=== PATIENT | female | born 1950 | race Caucasian/White ===

== ENCOUNTER 2017-08-23 10:50 | Emergency (ER) | payer MEDICARE, OTHER ==
--- NOTE | 2017-08-23 12:27 | XR ---
EXAMINATION TYPE: XR chest 2V DATE OF EXAM: 08/23/2017 COMPARISON: 06/27/2015 INDICATION: cough, pain TECHNIQUE: Frontal and lateral views of the chest are obtained. FINDINGS: The heart size is normal. The pulmonary vasculature is normal. The lungs are clear. IMPRESSION: 1. No acute pulmonary process.
[2017-08-23] MEDS ORDERED: IPRATROPIUM-ALBUTEROL 3 ML NEB INHALATION STA (13:12)
--- NOTE | 2017-08-23 13:18 | ED ---
General Adult HPI - General Chief complaint: Upper Respiratory Infection Stated complaint: COUGH Time Seen by Provider: 08/23/17 13:07 Source: patient, RN notes reviewed, old records reviewed Mode of arrival: wheelchair Limitations: no limitations - History of Present Illness Initial comments: 67-year-old female presents with 2 month history of cough. Patient is a current smoker. She states that her cough has been persistent over the past 2 months. She is also had rhinorrhea and some nasal congestion. Denies fever or chills. Cough is primarily dry. No chest pain. She does feel some abdominal pain when she coughs. No significant dyspnea. No lower extremity swelling, no calf tenderness. Patient has remote history of laryngeal cancer status post resection. Denies any sore throat or difficulty swallowing. Patient was seen by her primary care physician and prescribed an antibiotic but she was unable to get this filled. - Related Data Home Medications Medication Instructions Recorded Confirmed Aspirin EC [Ecotrin Low Dose] 81 mg PO DAILY 09/27/15 09/27/15 Pain Reliever(Unknown) 1 tab PO Q8H PRN 09/27/15 09/27/15 Previous Rx's Medication Instructions Recorded Docusate [Colace] 100 mg PO DAILY #30 capsule 09/27/15 HYDROcodone/APAP 5-325MG [[place] 5] 1 each PO Q4HR PRN #20 tab 09/27/15 Albuterol Inhaler [Ventolin Hfa 1 - 2 puff INHALATION Q4HR PRN #1 08/23/17 Inhaler] inhaler Azithromycin [Zithromax Z-pack] 0 mg PO DIRECTED #6 tab 08/23/17 predniSONE 50 mg PO DAILY #5 tab 08/23/17 Allergies Allergy/AdvReac Type Severity Reaction Status Date / Time No Known Allergies Allergy Verified 08/23/17 11:37 Review of Systems ROS Statement: Those systems with pertinent positive or pertinent negative responses have been documented in the HPI. ROS Other: All systems not noted in ROS Statement are negative. Past Medical History Past Medical History: Cancer, Hyperlipidemia Additional Past Medical History / Comment(s): neck and back pain, thyroid cancer History of Any Multi-Drug Resistant Organisms: None Reported Past Surgical History: Back Surgery Additional Past Surgical History / Comment(s): Thyroid surgery Past Psychological History: No Psychological Hx Reported Smoking Status: Current every day smoker Past Alcohol Use History: None Reported Past Drug Use History: None Reported General Exam Limitations: no limitations General appearance: alert, in no apparent distress Head exam: Present: atraumatic, normocephalic Eye exam: Present: normal appearance, PERRL ENT exam: Present: normal exam Neck exam: Present: normal inspection. Absent: tenderness, meningismus Respiratory exam: Present: wheezes, decreased breath sounds. Absent: respiratory distress, rhonchi, stridor, accessory muscle use Cardiovascular Exam: Present: regular rate, normal rhythm GI/Abdominal exam: Present: soft. Absent: distended, tenderness Extremities exam: Present: normal inspection, normal capillary refill. Absent: pedal edema, calf tenderness Neurological exam: Present: alert, oriented X3, CN II-XII intact. Absent: motor sensory deficit Psychiatric exam: Present: normal affect, normal mood Skin exam: Present: warm, dry, intact. Absent: cyanosis, diaphoretic Course Vital Signs 08/23/17 11:35 Temperature 98.6 F Pulse Rate 89 Respiratory 16 Rate Blood Pressure 122/78 O2 Sat by Pulse 97 Oximetry Medical Decision Making - Medical Decision Making 67-year-old female with 2 month history of cough and URI symptoms. Patient is afebrile. She is a current smoker, no documented history of COPD or asthma. However she has decreased breath sounds the next week. Patient likely has a component of chronic obstructive pulmonary disease. Normal vital signs, no respiratory distress. She is given albuterol, Atrovent, and Decadron in the emergency department. Chest x-rays obtained, this is negative for acute cardiopulmonary disease, no focal pneumonia. She will be started on a course of steroids, given albuterol, and azithromycin. She is encouraged to follow up with her primary care physician. She will attempt to quit smoking. Disposition Clinical Impression: Bronchitis Disposition: HOME SELF-CARE Condition: Fair Instructions: Upper Respiratory Infection (ED), Chronic Bronchitis (ED) Prescriptions: Albuterol Inhaler [Ventolin Hfa Inhaler] 1 - 2 puff INHALATION Q4HR PRN #1 inhaler PRN Reason: Shortness Of Breath Azithromycin [Zithromax Z-pack] 0 mg PO DIRECTED #6 tab predniSONE 50 mg PO DAILY #5 tab Is patient prescribed a controlled substance at d/c from ED?: No Referrals: Lolis Escalera DO [Primary Care Provider] - 1-2 days Time of Disposition: 13:16
[2017-08-23] MEDS: DEXAMETHASONE SOD PHOSPHATE 10 MG/ML 1 ML VIAL IM STA ×2 (13:27→13:49)
[2017-08-23 13:53] VITALS: BP 129/78; PULSE 69; RESP 18; TEMP 98
== END 2017-08-23 13:51 | disposition home or self-care (01) ==
LOC: EC 10:50
DX: J40 Bronchitis, not specified as acute or chronic (principal); Z85.850 Personal history of malignant neoplasm of thyroid; Z85.21 Personal history of malignant neoplasm of larynx; F17.200 Nicotine dependence, unspecified, uncomplicated; Z79.82 Long term (current) use of aspirin
CPT/HCPCS: 94640; 71046; 99284; 96372; J1100

== ENCOUNTER 2017-11-10 12:48 | Observation (INO) | payer MEDICARE, OTHER ==
[2017-11-10 13:06] VITALS: RESP 16
[2017-11-10] MEDS ORDERED: SODIUM CHLORIDE 0.9% 1,000 ML IV STA (13:15)
[2017-11-10 13:39] LABS: Basophils % (A) 0 %; Eosinophils # (A) 0.1 k/uL (0-0.7); Eosinophils % (A) 2 %; HCT 36.1 % (34.0-46.0); HGB 11.5 gm/dL (11.4-16.0); Lymphocytes % (A) 16 %; MCH 29.2 pg (25.0-35.0); MCHC 31.8 g/dL (31.0-37.0); MCV 91.7 fL (80.0-100.0); Mean Platelet Volume 8.7; Monocytes # (A) 0.3 k/uL (0-1.0); Monocytes % (A) 5 %; Neutrophils # (A) 4.5 k/uL (1.3-7.7); Neutrophils % (A) 75 %; Platelet Count 221 k/uL (150-450); RBC 3.93 m/uL (3.80-5.40); RDW 13.7 % (11.5-15.5)
[2017-11-10 13:43] LABS: Partial Thromboplastin Time 23.5 sec (22.0-30.0)
[2017-11-10 13:44] LABS: Albumin 3.5 g/dL (3.5-5.0); Calcium 9.1 mg/dL (8.4-10.2); Magnesium 1.7 mg/dL (1.6-2.3); Potassium 4.5 mmol/L (3.5-5.1); Total Bilirubin 0.4 mg/dL (0.2-1.3); Total Protein 6.2 g/dL (6.3-8.2)
[2017-11-10 13:45] LABS: Creatine Kinase 88 U/L (30-135)
--- NOTE | 2017-11-10 13:50 | XR ---
EXAMINATION TYPE: XR chest 2V DATE OF EXAM: 11/10/2017 COMPARISON: Prior chest x-ray 08/23/2017 HISTORY: Syncope, abnormal EKG TECHNIQUE: Frontal and lateral views of the chest are obtained. FINDINGS: Patient is rotated. There are overlying cardiac leads. There is no focal air space opacity, pleural effusion, or pneumothorax seen. The cardiac silhouette size is stable accounting for differ ences in technique, heart size may be exaggerated by rotation. There is increased AP diameter of the chest. Kyphosis present centered at the lower thoracic spine. There is thoracic spondylosis. Postop c hanges are noted in the cervical spine. The osseous structures are intact. IMPRESSION: No acute cardiopulmonary process.
[2017-11-10 13:57] LABS: Creatine Kinase MB 1.3 ng/mL (0.0-2.4); Troponin I <0.012 ng/mL (0.000-0.034)
--- NOTE | 2017-11-10 14:49 | ED ---
General Adult HPI - General Chief complaint: Syncope Stated complaint: Syncope Source: patient Mode of arrival: EMS Limitations: no limitations - History of Present Illness Initial comments: Dictation was produced using [employer] dictation software. please excuse any grammatical, word or spelling errors. Chief Complaint: 67-year-old female with past medical history of bronchitis, chronic low back pain presents after syncopal episode. History of Present Illness: This EKG and were she normally eats for lunch. She states she experience multiple syncopal episodes. Patient states she did have some prodromal dizziness prior to syncopized. Patient was brought in by EMS. EMS did an initial EKG which showed atrial flutter and a rate of 173. While en route to the emergency department patient converted spontaneously to a normal rhythm. Patient has a history of dysrhythmia. Patient denies any cardiac history whatsoever. EMS provided patient with intravenous fluids The ROS documented in this emergency department record has been reviewed and confirmed by me. Those systems with pertinent positive or negative responses have been documented in the HPI. All other systems are other negative and/or noncontributory. - Related Data Home Medications Medication Instructions Recorded Confirmed No Known Home Medications 11/10/17 11/10/17 Allergies Allergy/AdvReac Type Severity Reaction Status Date / Time No Known Allergies Allergy Verified 11/10/17 13:58 Review of Systems ROS Statement: Those systems with pertinent positive or pertinent negative responses have been documented in the HPI. ROS Other: All systems not noted in ROS Statement are negative. Past Medical History Past Medical History: Cancer, Hyperlipidemia Additional Past Medical History / Comment(s): neck and back pain, thyroid cancer History of Any Multi-Drug Resistant Organisms: None Reported Past Surgical History: Back Surgery Additional Past Surgical History / Comment(s): Thyroid surgery Past Psychological History: No Psychological Hx Reported Smoking Status: Current every day smoker Past Alcohol Use History: None Reported Past Drug Use History: None Reported General Exam - General Exam Comments Initial Comments: PHYSICAL EXAM: General Impression: Alert and oriented x3, not in acute distress HEENT: Normocephalic atraumatic, extra-ocular movements intact, pupils equal and reactive to light bilaterally, mucous membranes moist. Cardiovascular: Heart regular rate and rhythm, S1&S2 audible, no murmurs, rubs or gallops Chest: Lungs clear to auscultation bilaterally, no rhonchi, no wheeze, no rales Abdomen: Bowel sounds present, abdomen soft, non-tender, non-distended, no organomegaly Musculoskeletal: Pulses present and equal in all extremities, no peripheral edema Motor: Power 5/5 bilaterally, no focal deficits noted Neurological: CN II-XII grossly intact, no focal motor or sensory deficits noted Skin: Intact with no visualized rashes Psych: Normal affect and mood Limitations: no limitations Course Vital Signs 11/10/17 11/10/17 12:55 13:46 Temperature 98 F Pulse Rate 96 92 Respiratory 16 16 Rate Blood Pressure 109/58 115/71 O2 Sat by Pulse 97 100 Oximetry Medical Decision Making - Medical Decision Making ED course: 67-year-old female presents after syncopal episode secondary to tachydysrhythmia. EKG performed at her facility shows no acute processes. Vital signs upon arrival are within acceptable limits. Patient does not have any complaints at this time. She feels at baseline. Denies any lower extremity symptoms. Laboratory evaluation obtained. CBC unremarkable, coag panel unremarkable, metabolic panel is negative. Troponin is negative. At this point there is no clear source for patient's paroxysmal tachydysrhythmia. We will have patient admitted to observation for echocardiogram and cardiology consult. EKG Interpretation: A 12 lead EKG was obtained. It was interpreted by myself and attending physician. There is a P wave before every QRS complex. Rate is 96. Rhythm is normal sinus rhythm, MT interval 194, care surgeon 80, QTc 464. QT is not prolonged. No ST segment depression or elevation. Overall, this EKG is unremarkable - Lab Data Result diagrams: 11/10/17 13:08 11/10/17 13:08 Lab Results 11/10/17 11/10/17 11/10/17 Range/Units 13:08 13:08 13:08 WBC 6.0 (3.8-10.6) k/uL RBC 3.93 (3.80-5.40) m/uL Hgb 11.5 (11.4-16.0) gm/dL Hct 36.1 (34.0-46.0) % MCV 91.7 (80.0-100.0) fL MCH 29.2 (25.0-35.0) pg MCHC 31.8 (31.0-37.0) g/dL RDW 13.7 (11.5-15.5) % Plt Count 221 (150-450) k/uL Neutrophils % 75 % Lymphocytes % 16 % Monocytes % 5 % Eosinophils % 2 % Basophils % 0 % Neutrophils # 4.5 (1.3-7.7) k/uL Lymphocytes # 1.0 (1.0-4.8) k/uL Monocytes # 0.3 (0-1.0) k/uL Eosinophils # 0.1 (0-0.7) k/uL Basophils # 0.0 (0-0.2) k/uL PT (9.0-12.0) sec INR (<1.2) APTT (22.0-30.0) sec Sodium 137 (137-145) mmol/L Potassium 4.5 (3.5-5.1) mmol/L Chloride 106 (98-107) mmol/L Carbon Dioxide 23 (22-30) mmol/L Anion Gap 8 mmol/L BUN 15 (7-17) mg/dL Creatinine 0.95 (0.52-1.04) mg/dL Est GFR (CKD-EPI)AfAm 73 (>60 ml/min/1.73 sqM) Est GFR (CKD-EPI)NonAf 63 (>60 ml/min/1.73 sqM) Glucose 130 H (74-99) mg/dL Calcium 9.1 (8.4-10.2) mg/dL Magnesium 1.7 (1.6-2.3) mg/dL Total Bilirubin 0.4 (0.2-1.3) mg/dL AST 26 (14-36) U/L ALT 29 (9-52) U/L Alkaline Phosphatase 87 (38-126) U/L Total Creatine Kinase 88 (30-135) U/L CK-MB (CK-2) 1.3 (0.0-2.4) ng/mL CK-MB (CK-2) Rel Index 1.5 Troponin I <0.012 (0.000-0.034) ng/mL Total Protein 6.2 L (6.3-8.2) g/dL Albumin 3.5 (3.5-5.0) g/dL 11/10/17 Range/Units 13:08 WBC (3.8-10.6) k/uL RBC (3.80-5.40) m/uL Hgb (11.4-16.0) gm/dL Hct (34.0-46.0) % MCV (80.0-100.0) fL MCH (25.0-35.0) pg MCHC (31.0-37.0) g/dL RDW (11.5-15.5) % Plt Count (150-450) k/uL Neutrophils % % Lymphocytes % % Monocytes % % Eosinophils % % Basophils % % Neutrophils # (1.3-7.7) k/uL Lymphocytes # (1.0-4.8) k/uL Monocytes # (0-1.0) k/uL Eosinophils # (0-0.7) k/uL Basophils # (0-0.2) k/uL PT 10.0 (9.0-12.0) sec INR 1.0 (<1.2) APTT 23.5 (22.0-30.0) sec Sodium (137-145) mmol/L Potassium (3.5-5.1) mmol/L Chloride (98-107) mmol/L Carbon Dioxide (22-30) mmol/L Anion Gap mmol/L BUN (7-17) mg/dL Creatinine (0.52-1.04) mg/dL Est GFR (CKD-EPI)AfAm (>60 ml/min/1.73 sqM) Est GFR (CKD-EPI)NonAf (>60 ml/min/1.73 sqM) Glucose (74-99) mg/dL Calcium (8.4-10.2) mg/dL Magnesium (1.6-2.3) mg/dL Total Bilirubin (0.2-1.3) mg/dL AST (14-36) U/L ALT (9-52) U/L Alkaline Phosphatase (38-126) U/L Total Creatine Kinase (30-135) U/L CK-MB (CK-2) (0.0-2.4) ng/mL CK-MB (CK-2) Rel Index Troponin I (0.000-0.034) ng/mL Total Protein (6.3-8.2) g/dL Albumin (3.5-5.0) g/dL Disposition Clinical Impression: Paroxysmal atrial flutter Disposition: ADMITTED IP TO THIS HOSP Condition: Fair Referrals: Lolis Escalera DO [Primary Care Provider] - 1-2 days Decision Time: 14:50
[2017-11-10] MEDS ORDERED: NALOXONE 0.4 MG/ML 1 ML VIAL IV PRN (14:51)
[2017-11-10 15:00] LABS: Appearance,Urine Clear (Clear); Bacteria,Urine Rare /hpf; Bilirubin,Urine Negative (Negative); Blood,Urine Negative (Negative); Color,Urine Light Yellow; Glucose,Urine (UA) Negative (Negative); Ketones,Urine Negative (Negative); Leukocyte Esterase,Urine Small (Negative); Nitrite,Urine Negative (Negative); PH, Urine 7.5 (5.0-8.0); Protein,Urine Negative (Negative); RBC,Urine 1 /hpf (0-5); Specific Gravity,Urine 1.005 (1.001-1.035); Urobilinogen,Urine <2.0 mg/dL (<2.0); WBC,Urine 6 /hpf (0-5)
--- NOTE | 2017-11-10 15:45 | P.HPIM ---
History of Present Illness H&P Date: 11/10/17 Chief Complaint: Syncopal episode This is 67-year-old female patient of Dr. Lolis Escalera. Patient presents to the emergency room with complaints of passing out. And EMS in route EKG showed atrial flutter at a rate of 173. Per ER report in route patient did convert spontaneously to normal sinus rhythm. Patient history includes bronchitis, chronic low back pain and thyroid cancer. Patient also states she is a smoker. Patient states she's had syncopal episodes before and got referred to cardiology but no confirmed diagnosis was made. Chest x-ray completed emergency room showing no acute cardiopulmonary process. EKG completed on arrival to emergency room showing normal sinus rhythm. Inferior infarct, age undetermined. Anterior septal infarct, age undetermined. Cardiology services have been consulted. Patient also states she has been feeling off balance for the past year. D-dimer has been ordered. TSH and electrolyte levels have been ordered. At this time patient denies any chest pain or shortness of breath. Patient denies any recent nausea vomiting or diarrhea. Patient denies any urinary burning or frequency. Urinary analysis completed showing small amount of leukocyte Estrace. Urine culture has been ordered. Review of Systems Please refer to HPI otherwise unremarkable Past Medical History Past Medical History: Cancer, Hyperlipidemia Additional Past Medical History / Comment(s): neck and back pain, thyroid cancer History of Any Multi-Drug Resistant Organisms: None Reported Past Surgical History: Back Surgery Additional Past Surgical History / Comment(s): Thyroid surgery Past Psychological History: No Psychological Hx Reported Smoking Status: Current every day smoker Past Alcohol Use History: None Reported Past Drug Use History: None Reported Medications and Allergies Home Medications Medication Instructions Recorded Confirmed Type No Known Home Medications 11/10/17 11/10/17 History Allergies Allergy/AdvReac Type Severity Reaction Status Date / Time No Known Allergies Allergy Verified 11/10/17 13:58 Physical Exam Vitals: Vital Signs Temp Pulse Resp BP Pulse Ox 11/10/17 15:13 97.8 F 11/10/17 14:57 97 16 113/66 97 11/10/17 13:46 92 16 115/71 100 11/10/17 12:55 98 F 96 16 109/58 97 Intake and Output 11/10/17 11/10/17 11/10/17 06:59 14:59 22:59 Other: Weight 68.039 kg Head normocephalic Neck supple Lungs clear to auscultation bilaterally no wheezing or crackles Heart regular rate and rhythm S1-S2, no rub or gallop Abdomen is soft nontender nondistended positive bowel sounds no hepatosplenomegaly Extremities no edema Neuro alert and orientated to 3 Results CBC & Chem 7: 11/10/17 13:08 11/10/17 13:08 Labs: Abnormal Lab Results - Last 24 Hours (Table) 11/10/17 11/10/17 Range/Units 13:08 14:44 Glucose 130 H (74-99) mg/dL Total Protein 6.2 L (6.3-8.2) g/dL Ur Leukocyte Esterase Small H (Negative) Urine WBC 6 H (0-5) /hpf Urine Bacteria Rare H (None) /hpf Assessment and Plan Assessment: 1. Syncopal episode with episodes of paroxysmal atrial flutter. Per EMS report patient's heart rate 173. Patient did convert spontaneously in route to hospital. EKG completed on arrival to emergency room showing normal sinus rhythm. Inferior infarct, age undetermined. Anterior septal infarct, age undetermined. Cardiology services have been consulted. TSH magnesium and electrolytes have been ordered. D-dimer also ordered 2. History of thyroid cancer 3. Nicotine dependence. Nicotine patch has been ordered 4. Hyperlipidemia 5. History of chronic back pain 6. Positive UA. Urinary analysis showing small amount of leukocyte Estrace. Patient denies any urinary symptoms at this time. Urine culture has been ordered DVT prophylaxis Lovenox. GI prophylaxis Pepcid Time with Patient: Greater than 30 (Greater than 60% of the total time spent in counseling and coordination of care. I performed an examination of the patient and discussed their management with the Nurse Practitioner. I have reviewed the Nurse Practitioner's notes and agree with the documented findings and plan of care)
[2017-11-10 16:44] LABS: T4, Free (Free Thyroxine) 0.75 ng/dL (0.78-2.19)
[2017-11-10 17:41] VITALS: BP 136/74; PULSE 80; TEMP 96.8
[2017-11-11] MEDS ORDERED: NICOTINE 14MG/24HR PATCH TRANSDERM SCH (09:00)
[2017-11-11] MEDS ORDERED: FAMOTIDINE 20 MG TAB PO SCH (09:00)
[2017-11-11] MEDS ORDERED: ENOXAPARIN 40 MG/0.4 ML SYRINGE SQ SCH (09:00)
--- NOTE | 2017-11-11 11:14 | P.DS ---
Providers Date of admission: 11/10/17 14:52 Expected date of discharge: 11/10/17 Attending physician: Robbie Rodriguez Consults: 11/10/17 14:52 Consult Physician Routine Consulting Provider: Patricia Zarate Consult Reason/Comments: paroxysmal atrial flutter Do you want consulting provider notified?: Yes Primary care physician: Lolis Escalera Hospital Course: Patient left AGAINST MEDICAL ADVICE Discharge Diagnosis 1. Syncopal episode with episodes of paroxysmal atrial flutter. Per EMS report patient's heart rate 173. Patient did convert spontaneously in route to hospital. EKG completed on arrival to emergency room showing normal sinus rhythm. Inferior infarct, age undetermined. Anterior septal infarct, age undetermined. Cardiology services have been consulted. TSH magnesium and electrolytes have been ordered. D-dimer also ordered. Recommended thorough workup but patient decided to leave AGAINST MEDICAL ADVICE. 2. History of thyroid cancer 3. Nicotine dependence. Nicotine patch has been ordered 4. Hyperlipidemia 5. History of chronic back pain 6. Positive UA. Urinary analysis showing small amount of leukocyte Estrace. Patient denies any urinary symptoms at this time. Urine culture has been ordered Hospital course This is 67-year-old female patient of Dr. Lolis Escalera. Patient presents to the emergency room with complaints of passing out. And EMS in route EKG showed atrial flutter at a rate of 173. Per ER report in route patient did convert spontaneously to normal sinus rhythm. Patient history includes bronchitis, chronic low back pain and thyroid cancer. Patient also states she is a smoker. Patient states she's had syncopal episodes before and got referred to cardiology but no confirmed diagnosis was made. Chest x-ray completed emergency room showing no acute cardiopulmonary process. EKG completed on arrival to emergency room showing normal sinus rhythm. Inferior infarct, age undetermined. Anterior septal infarct, age undetermined. Cardiology services have been consulted. Patient also states she has been feeling off balance for the past year. D-dimer has been ordered. TSH and electrolyte levels have been ordered. At this time patient denies any chest pain or shortness of breath. Patient denies any recent nausea vomiting or diarrhea. Patient denies any urinary burning or frequency. Urinary analysis completed showing small amount of leukocyte Estrace. Urine culture has been ordered. Per nursing records patient presented with bed bugs and patient's belongings were sealed in bed she got upset due to her belongings being taken away and decided to leave AGAINST MEDICAL ADVICE. It was recommended the patient stay for thorough workup but patient declined and continue to leave against medical I performed an examination of the patient and discussed their management with the Nurse Practitioner. I have reviewed the Nurse Practitioner's notes and agree with the documented findings and plan of care Patient Condition at Discharge: Fair Plan - Discharge Summary Discharge Rx Participant: No New Discharge Prescriptions: No Action No Known Home Medications Discharge Medication List No Known Home Medications 11/10/17 [History] Follow up Appointment(s)/Referral(s): Lolis Escalera DO [Primary Care Provider] - 1-2 days Discharge Disposition: Left Against Medical Advice
== END 2017-11-10 22:02 | disposition left against medical advice (07) ==
LOC: EC 12:48 → 6SEL 14:52
PROVIDERS: ADMIT Internal Medicine; ATTEND Internal Medicine
DX: R55 Syncope and collapse (principal); I48.92 Unspecified atrial flutter; R82.90 Unspecified abnormal findings in urine; G89.29 Other chronic pain; M54.5 Low back pain; M54.2 Cervicalgia; E78.5 Hyperlipidemia, unspecified; F17.200 Nicotine dependence, unspecified, uncomplicated; B88.8 Other specified infestations; I25.2 Old myocardial infarction; Z85.850 Personal history of malignant neoplasm of thyroid; Z87.09 Personal history of other diseases of the respiratory system
CPT/HCPCS: 99285 ×2; 96360 ×2; 36415; 93005; 85379; 84439; 80053; 84443; 82550; 82553; 83735; 84484; 85025; 85610; 85730; 81001; 71046; G0378

== ENCOUNTER 2017-11-19 08:39 | Inpatient (IN) | payer MEDICARE, OTHER ==
[2017-11-19] MEDS ORDERED: SODIUM CHLORIDE 0.9% 1,000 ML IV STA (08:57)
[2017-11-19] MEDS ORDERED: NICOTINE 21MG/24HR PATCH TRANSDERM STA (09:08)
[2017-11-19] MEDS ORDERED: ONDANSETRON 4 MG/2 ML VIAL IVP STA (09:09)
--- NOTE | 2017-11-19 09:11 | ED ---
General Adult HPI - General Chief complaint: Nausea/Vomiting/Diarrhea Stated complaint: Nauseated, Vertigo Time Seen by Provider: 11/19/17 08:42 Source: patient, EMS, RN notes reviewed Mode of arrival: EMS Limitations: no limitations - History of Present Illness Initial comments: 67-year-old female presents with lightheadedness, generalized shakiness, and nausea and vomiting. Patient has had several episodes of nausea and vomiting in the past 24 hours. Denies any room spinning sensation or vertigo-like symptoms. Denies focal weakness or numbness. Denies any pain complaints, no chest pain or abdominal pain. Patient states she has recently quit smoking in the past 2 days. She believes her symptoms may be related to smoking cessation. She does not have money for cigarettes or nicotine patches. - Related Data Home Medications Medication Instructions Recorded Confirmed No Known Home Medications 11/10/17 11/19/17 Allergies Allergy/AdvReac Type Severity Reaction Status Date / Time No Known Allergies Allergy Verified 11/19/17 09:05 Review of Systems ROS Statement: Those systems with pertinent positive or pertinent negative responses have been documented in the HPI. ROS Other: All systems not noted in ROS Statement are negative. Past Medical History Past Medical History: Cancer, Hyperlipidemia, Pneumonia Additional Past Medical History / Comment(s): neck and back pain, thyroid cancer ,bronchitis "ringing in my ears","poor circulation" History of Any Multi-Drug Resistant Organisms: None Reported Past Surgical History: No Surgical Hx Reported Additional Past Surgical History / Comment(s): Thyroid surgery, x2 neck sx Past Anesthesia/Blood Transfusion Reactions: No Reported Reaction Additional Past Anesthesia/Blood Transfusion Reaction / Comment(s): clausterphobia Past Psychological History: No Psychological Hx Reported Smoking Status: Current every day smoker Past Alcohol Use History: None Reported - Past Family History Mother Family Medical History: Myocardial Infarction ([place]) Brother(s) Family Medical History: Myocardial Infarction [place]) Father Family Medical History: Myocardial Infarction [place]) Additional Family Medical History / Comment(s): x3 mi's General Exam Limitations: no limitations General appearance: alert, in no apparent distress Head exam: Present: atraumatic, normocephalic Eye exam: Present: normal appearance, PERRL, EOMI ENT exam: Present: normal exam Neck exam: Present: normal inspection Respiratory exam: Present: normal lung sounds bilaterally. Absent: respiratory distress Cardiovascular Exam: Present: regular rate, normal rhythm GI/Abdominal exam: Present: soft. Absent: distended, tenderness, guarding Extremities exam: Present: normal inspection, normal capillary refill. Absent: pedal edema Neurological exam: Present: alert, oriented X3, CN II-XII intact, other (No ataxia). Absent: motor sensory deficit Psychiatric exam: Present: normal affect, normal mood Skin exam: Present: warm, dry, intact Course Vital Signs 11/19/17 11/19/17 08:47 10:07 Temperature 96.9 F L Pulse Rate 76 71 Respiratory 18 20 Rate Blood Pressure 155/70 148/76 O2 Sat by Pulse 98 97 Oximetry - Reevaluation(s) Reevaluation #1: 11/19/17 12:48 On reevaluation, patient is not feeling better, she is tremulous, with nausea. EKG Findings - EKG Comments: EKG Findings:: EKG: Normal sinus rhythm, low voltage, no ST segment elevation, there is baseline artifact secondary to tremor. Rate of 73, [place] interval 180, QRS duration 78, QTC 449 Medical Decision Making - Medical Decision Making 67-year-old female presenting with nausea vomiting and tremor. Patient has no focal neurologic findings. Vital signs are stable. Laboratory studies obtained , patient does have sodium of 128 on CMP, CBC is within normal limits, urinalysis positive for trace ketones reflective likely of some dehydration. She is given normal saline in the emergency department on reevaluation she is feeling better. She will be placed in observation for continued IV hydration and repeat laboratory studies in the morning. Case discussed with Dr. Rodriguez, will accept admission. - Lab Data Result diagrams: 11/19/17 09:15 11/19/17 09:15 Lab Results 11/19/17 11/19/17 11/19/17 Range/Units 09:15 09:15 09:15 WBC 6.0 (3.8-10.6) k/uL RBC 4.01 (3.80-5.40) m/uL Hgb 11.9 (11.4-16.0) gm/dL Hct 35.2 (34.0-46.0) % MCV 87.9 (80.0-100.0) fL MCH 29.8 (25.0-35.0) pg MCHC 33.9 (31.0-37.0) g/dL RDW 13.5 (11.5-15.5) % Plt Count 191 (150-450) k/uL Neutrophils % 78 % Lymphocytes % 14 % Monocytes % 6 % Eosinophils % 1 % Basophils % 0 % Neutrophils # 4.6 (1.3-7.7) k/uL Lymphocytes # 0.9 L (1.0-4.8) k/uL Monocytes # 0.4 (0-1.0) k/uL Eosinophils # 0.1 (0-0.7) k/uL Basophils # 0.0 (0-0.2) k/uL Sodium 128 L (137-145) mmol/L Potassium 4.3 (3.5-5.1) mmol/L Chloride 96 L (98-107) mmol/L Carbon Dioxide 22 (22-30) mmol/L Anion Gap 10 mmol/L BUN 8 (7-17) mg/dL Creatinine 0.51 L (0.52-1.04) mg/dL Est GFR (CKD-EPI)AfAm >90 (>60 ml/min/1.73 sqM) Est GFR (CKD-EPI)NonAf >90 (>60 ml/min/1.73 sqM) Glucose 99 (74-99) mg/dL Calcium 9.1 (8.4-10.2) mg/dL Total Bilirubin 0.4 (0.2-1.3) mg/dL AST 22 (14-36) U/L ALT 25 (9-52) U/L Alkaline Phosphatase 91 (38-126) U/L Troponin I <0.012 (0.000-0.034) ng/mL Total Protein 6.5 (6.3-8.2) g/dL Albumin 3.8 (3.5-5.0) g/dL Urine Color Urine Appearance (Clear) Urine pH (5.0-8.0) Ur Specific [place] (1.001-1.035) Urine Protein (Negative) Urine Glucose (UA) (Negative) Urine Ketones (Negative) Urine Blood (Negative) Urine Nitrite (Negative) Urine Bilirubin (Negative) Urine Urobilinogen (<2.0) mg/dL Ur Leukocyte Esterase (Negative) Urine RBC (0-5) /hpf Urine WBC (0-5) /hpf Ur Squamous Epith Cells (0-4) /hpf Urine Mucus (None) /hpf Urine Opiates Screen (NotDetected) Ur Oxycodone Screen (NotDetected) Urine Methadone Screen (NotDetected) Ur Propoxyphene Screen (NotDetected) Ur Barbiturates Screen (NotDetected) U Tricyclic Antidepress (NotDetected) Ur Phencyclidine Scrn (NotDetected) Ur Amphetamines Screen (NotDetected) U Methamphetamines Scrn (NotDetected) U Benzodiazepines Scrn (NotDetected) Urine Cocaine Screen (NotDetected) U Marijuana (THC) Screen (NotDetected) Serum Alcohol <10 mg/dL 11/19/17 Range/Units 10:05 WBC (3.8-10.6) k/uL RBC (3.80-5.40) m/uL Hgb (11.4-16.0) gm/dL Hct (34.0-46.0) % MCV (80.0-100.0) fL MCH (25.0-35.0) pg MCHC (31.0-37.0) g/dL RDW (11.5-15.5) % Plt Count (150-450) k/uL Neutrophils % % Lymphocytes % % Monocytes % % Eosinophils % % Basophils % % Neutrophils # (1.3-7.7) k/uL Lymphocytes # (1.0-4.8) k/uL Monocytes # (0-1.0) k/uL Eosinophils # (0-0.7) k/uL Basophils # (0-0.2) k/uL Sodium (137-145) mmol/L Potassium (3.5-5.1) mmol/L Chloride (98-107) mmol/L Carbon Dioxide (22-30) mmol/L Anion Gap mmol/L BUN (7-17) mg/dL Creatinine (0.52-1.04) mg/dL Est GFR (CKD-EPI)AfAm (>60 ml/min/1.73 sqM) Est GFR (CKD-EPI)NonAf (>60 ml/min/1.73 sqM) Glucose (74-99) mg/dL Calcium (8.4-10.2) mg/dL Total Bilirubin (0.2-1.3) mg/dL AST (14-36) U/L ALT (9-52) U/L Alkaline Phosphatase (38-126) U/L Troponin I (0.000-0.034) ng/mL Total Protein (6.3-8.2) g/dL Albumin (3.5-5.0) g/dL Urine Color Light Yellow Urine Appearance Clear (Clear) Urine pH 6.0 (5.0-8.0) Ur Specific [place] 1.008 (1.001-1.035) Urine Protein Negative (Negative) Urine Glucose (UA) Negative (Negative) Urine Ketones Trace H (Negative) Urine Blood Small H (Negative) Urine Nitrite Negative (Negative) Urine Bilirubin Negative (Negative) Urine Urobilinogen <2.0 (<2.0) mg/dL Ur Leukocyte Esterase Moderate H (Negative) Urine RBC 6 H (0-5) /hpf Urine WBC 13 H (0-5) /hpf Ur Squamous Epith Cells <1 (0-4) /hpf Urine Mucus Rare H (None) /hpf Urine Opiates Screen Not Detected (NotDetected) Ur Oxycodone Screen Not Detected (NotDetected) Urine Methadone Screen Not Detected (NotDetected) Ur Propoxyphene Screen Not Detected (NotDetected) Ur Barbiturates Screen Not Detected (NotDetected) U Tricyclic Antidepress Not Detected (NotDetected) Ur Phencyclidine Scrn Not Detected (NotDetected) Ur Amphetamines Screen Not Detected (NotDetected) U Methamphetamines Scrn Not Detected (NotDetected) U Benzodiazepines Scrn Not Detected (NotDetected) Urine Cocaine Screen Not Detected (NotDetected) U Marijuana (THC) Screen Not Detected (NotDetected) Serum Alcohol mg/dL Disposition Clinical Impression: Dehydration, Hyponatremia Disposition: ADMITTED IP TO THIS [facility] Condition: Stable Is patient prescribed a controlled substance at d/c from ED?: No Referrals: Lolis Escalera DO [Primary Care Provider] - 1-2 days Decision to Admit Reason: Admit from EC Decision Date: 11/19/17 Decision Time: 12:50
[2017-11-19 09:44] LABS: Basophils % (A) 0 %; Eosinophils # (A) 0.1 k/uL (0-0.7); Eosinophils % (A) 1 %; HCT 35.2 % (34.0-46.0); HGB 11.9 gm/dL (11.4-16.0); Lymphocytes # (A) 0.9 k/uL (1.0-4.8); Lymphocytes % (A) 14 %; MCH 29.8 pg (25.0-35.0); MCHC 33.9 g/dL (31.0-37.0); MCV 87.9 fL (80.0-100.0); Mean Platelet Volume 9.6; Monocytes # (A) 0.4 k/uL (0-1.0); Monocytes % (A) 6 %; Neutrophils # (A) 4.6 k/uL (1.3-7.7); Neutrophils % (A) 78 %; Platelet Count 191 k/uL (150-450); RBC 4.01 m/uL (3.80-5.40); RDW 13.5 % (11.5-15.5)
[2017-11-19 09:55] LABS: ALT 25 U/L (9-52); AST 22 U/L (14-36); Albumin 3.8 g/dL (3.5-5.0); Alcohol <10 mg/dL; Alkaline Phosphatase 91 U/L (38-126); Anion Gap 10 mmol/L; Blood Urea Nitrogen 8 mg/dL (7-17); Calcium 9.1 mg/dL (8.4-10.2); Carbon Dioxide 22 mmol/L (22-30); Chloride 96 mmol/L (98-107); Glucose 99 mg/dL (74-99); Potassium 4.3 mmol/L (3.5-5.1); Sodium 128 mmol/L (137-145); Total Bilirubin 0.4 mg/dL (0.2-1.3); Total Protein 6.5 g/dL (6.3-8.2)
[2017-11-19 10:18] LABS: Appearance,Urine Clear (Clear); Bilirubin,Urine Negative (Negative); Blood,Urine Small (Negative); Color,Urine Light Yellow; Glucose,Urine (UA) Negative (Negative); Ketones,Urine Trace (Negative); Leukocyte Esterase,Urine Moderate (Negative); Mucus,Urine Rare /hpf; Nitrite,Urine Negative (Negative); Protein,Urine Negative (Negative); RBC,Urine 6 /hpf (0-5); Specific Gravity,Urine 1.008 (1.001-1.035); Squamous Epithelial Cell,Urine <1 /hpf (0-4); Urobilinogen,Urine <2.0 mg/dL (<2.0); WBC,Urine 13 /hpf (0-5)
[2017-11-19 10:27] LABS: Amphetamine Screen,Urine Not Detected (NotDetected); Barbiturate Screen,Urine Not Detected (NotDetected); Benzodiazepines Screen,Urine Not Detected (NotDetected); Cocaine Screen,Urine Not Detected (NotDetected); Methadone Screen, Urine Not Detected (NotDetected); Opiate Screen,Urine Not Detected (NotDetected); Oxycodone Screen, Urine Not Detected (NotDetected); Phencyclidine Screen,Urine Not Detected (NotDetected); Tricyclic Antidepressant,Urine Not Detected (NotDetected); Urn Cannabinoid Scrn Not Detected (NotDetected)
--- NOTE | 2017-11-19 11:17 | XR ---
EXAMINATION TYPE: XR chest 2V DATE OF EXAM: 11/19/2017 COMPARISON: Chest x-ray November 10, 2017 HISTORY: Weakness. TECHNIQUE: Frontal and lateral views of the chest are obtained. FINDINGS: There is chronic parenchymal change without suspicious new focal air space opacity, pleura l effusion, or pneumothorax seen. The cardiac silhouette size remains enlarged. Surgical changes cer vical spine is partially imaged. IMPRESSION: Chronic parenchymal changes and cardiomegaly without acute pulmonary process. No signifi cant change from prior.
[2017-11-19] MEDS ORDERED: ONDANSETRON 4 MG/2 ML VIAL IVP PRN (12:46)
[2017-11-19] MEDS ORDERED: NALOXONE 0.4 MG/ML 1 ML VIAL IV PRN (12:46)
--- NOTE | 2017-11-19 14:35 | P.HPIM ---
History of Present Illness H&P Date: 11/19/17 Chief Complaint: Nausea and shaking This is a 67-year-old female, a patient of Dr. Escalera. She has a known past medical history of thyroid cancer with thyroid surgery a couple years ago. Patient reports she was taken off of medication. She also has a history of hyperlipidemia and nicotine dependence. Patient also was recently hospitalized on 11/10/2017 where she left AGAINST MEDICAL ADVICE at that time she was diagnosed with syncope with episode of paroxysmal atrial flutter. She presents to the ER today with complaints of nausea, shaky and lightheadedness. She's had a poor appetite over the last couple of days. She reports no actual vomiting. She was found have evidence of a UTI will be started on Rocephin. Also found have evidence of a sodium of 128 chloride 96. She's given IV fluids. Her thyroid levels were abnormal on 11/10/2017 TSH was elevated at 17.100 and free T4 low at 0.75. Please note on EKG she for this admission shows a normal sinus rhythm with inferior infarct age undetermined. Chest x- ray shows no acute change. Patient denies any fever or chills or sweats. Denies any vomiting or bowel movement changes. She denies any burning with urination or frequency or urgency. Patient does report usually smokes about a pack to pack and a half a day. However she ran out of money and his been unable to afford her cigarettes. She feels that her symptoms may be contributed to not smoking. Drug screen is negative. Alcohol level less than 10. Patient denies seizure activity Review of Systems Please refer to HPI otherwise unremarkable Past Medical History Past Medical History: Cancer, Hyperlipidemia, Pneumonia Additional Past Medical History / Comment(s): neck and back pain, thyroid cancer ,bronchitis "ringing in my ears","poor circulation" History of Any Multi-Drug Resistant Organisms: None Reported Past Surgical History: No Surgical Hx Reported Additional Past Surgical History / Comment(s): Thyroid surgery, x2 neck sx Past Anesthesia/Blood Transfusion Reactions: No Reported Reaction Additional Past Anesthesia/Blood Transfusion Reaction / Comment(s): clausterphobia Past Psychological History: No Psychological Hx Reported Smoking Status: Current every day smoker Past Alcohol Use History: None Reported - Past Family History Mother Family Medical History: Myocardial Infarction ([place]) Brother(s) Family Medical History: Myocardial Infarction ([place]) Father Family Medical History: Myocardial Infarction ([place]) Additional Family Medical History / Comment(s): x3 mi's Medications and Allergies Home Medications Medication Instructions Recorded Confirmed Type No Known Home Medications 11/10/17 11/19/17 History Allergies Allergy/AdvReac Type Severity Reaction Status Date / Time No Known Allergies Allergy Verified 11/19/17 09:05 Physical Exam Vitals: Vital Signs Temp Pulse Resp BP Pulse Ox 11/19/17 13:49 98.6 F 72 24 144/76 97 11/19/17 10:07 71 20 148/76 97 11/19/17 08:47 96.9 F L 76 18 155/70 98 Intake and Output 11/18/17 11/19/17 11/19/17 22:59 06:59 14:59 Other: Weight 74 kg Head normocephalic Neck supple Lungs clear to auscultation bilaterally no wheezing or crackles Heart regular rate and rhythm S1-S2, no rub or gallop Abdomen is soft nontender nondistended positive bowel sounds no hepatosplenomegaly Extremities no edema Neuro alert and orientated to 3 Results CBC & Chem 7: 11/19/17 09:15 11/19/17 09:15 Labs: Abnormal Lab Results - Last 24 Hours (Table) 11/19/17 11/19/17 11/19/17 Range/Units 09:15 09:15 10:05 Lymphocytes # 0.9 L (1.0-4.8) k/uL Sodium 128 L (137-145) mmol/L Chloride 96 L (98-107) mmol/L Creatinine 0.51 L (0.52-1.04) mg/dL Urine Ketones Trace H (Negative) Urine Blood Small H (Negative) Ur Leukocyte Esterase Moderate H (Negative) Urine RBC 6 H (0-5) /hpf Urine WBC 13 H (0-5) /hpf Urine Mucus Rare H (None) /hpf Assessment and Plan Assessment: 1. Nausea with shaking and lightheadedness: possibly related to dehydration due to poor oral intake, hyponatremia and UTI. continue Zofran and IV fluids. 2. Hyponatremia: Sodium level 128 on admission. Possibly related to poor oral intake. Continue normal saline at 75 mL an hour. Repeat labs in a.m. 3. UTI: Check urine culture. Start Rocephin 1 g IV daily 4. History of thyroid cancer status post thyroidectomy. Repeat thyroid studies. Labs from 11/10/2017 show a TSH of 17.100 and a free T4 of 0.75 5. Nicotine dependence: Discussed smoking cessation greater than 3 minutes. Nicotine patch 21 mg daily 6. Recent hospitalization 11/10/2017 with syncope and paroxysmal atrial flutter patient left AGAINST MEDICAL ADVICE. We'll continue telemetry monitoring GI prophylaxis Protonix and DVT prophylaxis Lovenox Time with Patient: Greater than 30 (Greater than 60% of the total time spent in counseling and coordination of care.I performed an examination of the patient and discussed their management with the physician Chief Compressor Station Engineer. I have reviewed the Physician Chief Compressor Station Engineer's notes and agree with the documented findings and plan of care)
[2017-11-19] MEDS: SODIUM CHLORIDE 0.9% 1,000 ML IV SCH (15:42)
[2017-11-19] MEDS: ALPRAZolam 0.25 MG TAB PO PRN (15:42)
[2017-11-19 18:30] LABS: T4, Free (Free Thyroxine) 0.81 ng/dL (0.78-2.19)
[2017-11-19] MEDS: ACETAMINOPHEN TAB 325 MG TAB PO PRN (18:38)
[2017-11-20] MEDS: SODIUM CHLORIDE 0.9% 1,000 ML IV SCH ×2 (03:46→16:29)
[2017-11-20] MEDS: LEVOTHYROXINE 75 MCG TAB PO SCH ×2 (06:31→06:33)
[2017-11-20 07:34] LABS: Basophils % (A) 1 %; Eosinophils # (A) 0.1 k/uL (0-0.7); Eosinophils % (A) 3 %; HCT 38.8 % (34.0-46.0); HGB 12.5 gm/dL (11.4-16.0); Lymphocytes % (A) 20 %; MCH 29.3 pg (25.0-35.0); MCHC 32.3 g/dL (31.0-37.0); MCV 90.7 fL (80.0-100.0); Mean Platelet Volume 9.1; Monocytes # (A) 0.5 k/uL (0-1.0); Monocytes % (A) 10 %; Neutrophils # (A) 3.3 k/uL (1.3-7.7); Neutrophils % (A) 66 %; Platelet Count 215 k/uL (150-450); RBC 4.28 m/uL (3.80-5.40); RDW 13.7 % (11.5-15.5); WBC 5.1 k/uL (3.8-10.6)
[2017-11-20 08:14] LABS: ALT 23 U/L (9-52); AST 31 U/L (14-36); Albumin 3.9 g/dL (3.5-5.0); Alkaline Phosphatase 98 U/L (38-126); Anion Gap 11 mmol/L; Blood Urea Nitrogen 8 mg/dL (7-17); Calcium 9.5 mg/dL (8.4-10.2); Carbon Dioxide 22 mmol/L (22-30); Chloride 102 mmol/L (98-107); Glucose 88 mg/dL (74-99); Magnesium 1.9 mg/dL (1.6-2.3); Potassium 4.6 mmol/L (3.5-5.1); Sodium 135 mmol/L (137-145); Total Bilirubin 0.4 mg/dL (0.2-1.3); Total Protein 6.9 g/dL (6.3-8.2)
[2017-11-20] MEDS: NICOTINE 21MG/24HR PATCH TRANSDERM SCH (08:16)
[2017-11-20] MEDS: PANTOPRAZOLE 40 MG TABLET PO SCH (08:17)
[2017-11-20] MEDS: ENOXAPARIN 40 MG/0.4 ML SYRINGE SQ SCH (08:17)
[2017-11-20] MEDS: ALPRAZolam 0.25 MG TAB PO PRN ×2 (08:24→20:21)
--- NOTE | 2017-11-20 08:55 | P.NPCON ---
History of Present Illness - Reason for Consult hyponatremia - History of Present Illness Reason for consultation: Hyponatremia History of present illness: Patient is a 67-year-old female seen in renal consultation for hyponatremia. Patient presented to the hospital with nausea and vomiting going on for about one day. Patient states she ran out of cigarettes yesterday and felt quite agitated. Admits to good urine output. No hematuria or dysuria. Admits to drinking quite a bit of water but is unable to quantify. She is not on any diuretics. Patient was started on normal saline at 75 mL an hour in sodium level improved from 128 on admission to 135 this morning. No edema. Denies chest pain or shortness of breath. She also has hypothyroidism and is being treated with Synthroid. TSH levels have been trending down. No further vomiting or diarrhea. Urinalysis reveals no protein. Creatinine is 0.58. Admits to being depressed. Denies personal or family history of renal disease. Denies use of NSAIDs. No fever or chills. Vital signs are stable. General: The patient appeared well nourished and normally developed. HEENT: Head exam is unremarkable. Neck is without jugular venous distension. LUNGS: Lungs are clear to auscultation and percussion. Breath sounds decreased. HEART: Rate and Rhythm are regular. First and second heart sounds normal. No murmurs, rubs or gallops. ABDOMEN: Abdominal exam reveals normal bowel sounds. Non-tender and non- distended. No evidence of peritonitis. EXTREMITITES: No clubbing, cyanosis, or edema. Past Medical History Past Medical History: Cancer, Hyperlipidemia, Pneumonia Additional Past Medical History / Comment(s): neck and back pain, thyroid cancer ,bronchitis "ringing in my ears","poor circulation" History of Any Multi-Drug Resistant Organisms: None Reported Past Surgical History: No Surgical Hx Reported Additional Past Surgical History / Comment(s): Thyroid surgery, x2 neck sx Past Anesthesia/Blood Transfusion Reactions: No Reported Reaction Additional Past Anesthesia/Blood Transfusion Reaction / Comment(s): clausterphobia Smoking Status: Former smoker - Past Family History Mother Family Medical History: Myocardial Infarction ([place]) Brother(s) Family Medical History: Myocardial Infarction ([place]) Father Family Medical History: Myocardial Infarction ([place]) Additional Family Medical History / Comment(s): x3 mi's Medications and Allergies Home Medications Medication Instructions Recorded Confirmed Type No Known Home Medications 11/10/17 11/19/17 History Allergies Allergy/AdvReac Type Severity Reaction Status Date / Time No Known Allergies Allergy Verified 11/19/17 09:05 Physical Exam Vitals: Vital Signs Temp Pulse Pulse Resp BP BP Pulse Ox 11/20/17 06:25 96.9 F L 84 18 138/72 96 11/19/17 23:00 97.4 F L 73 18 132/70 99 11/19/17 17:53 74 16 11/19/17 14:45 97.6 F 75 20 140/81 97 11/19/17 13:49 98.6 F 72 24 144/76 97 11/19/17 10:07 71 20 148/76 97 Intake and Output 11/19/17 11/20/17 11/20/17 22:59 06:59 14:59 Intake Total 1000 600 Balance 1000 600 Intake: Oral 1000 600 Other: Voiding Method Toilet # Voids 3 2 Results - Lab Results Most recent lab results Calcium 9.5 mg/dL (8.4-10.2) 11/20/17 07:08 Magnesium 1.9 mg/dL (1.6-2.3) 11/20/17 07:08 11/20/17 07:08 11/20/17 07:08 Assessment and Plan Plan: Assessment: 1. Hypovolemic hyponatremia secondary to intravascular volume depletion from vomiting improving with IV hydration. Sodium level up to 135 this morning. 2. Hypothyroidism maintained on Synthroid. 3. Pyuria. Follow-up urine culture. Plan: Continue normal saline at 75 mL an hour. Encourage oral intake. Follow-up urine culture. Thank you for the consultation. I will continue to follow the patient with you during her hospital stay.
--- NOTE | 2017-11-20 12:44 | P.PN ---
Subjective Progress Note Date: 11/20/17 This is a 67-year-old female, a patient of Dr. Escalera. She has a known past medical history of thyroid cancer with thyroid surgery a couple years ago. Patient reports she was taken off of medication. She also has a history of hyperlipidemia and nicotine dependence. Patient also was recently hospitalized on 11/10/2017 where she left AGAINST MEDICAL ADVICE at that time she was diagnosed with syncope with episode of paroxysmal atrial flutter. She presents to the ER today with complaints of nausea, shaky and lightheadedness. She's had a poor appetite over the last couple of days. She reports no actual vomiting. She was found have evidence of a UTI will be started on Rocephin. Also found have evidence of a sodium of 128 chloride 96. She's given IV fluids. Her thyroid levels were abnormal on 11/10/2017 TSH was elevated at 17.100 and free T4 low at 0.75. Please note on EKG she for this admission shows a normal sinus rhythm with inferior infarct age undetermined. Chest x- ray shows no acute change. Patient denies any fever or chills or sweats. Denies any vomiting or bowel movement changes. She denies any burning with urination or frequency or urgency. Patient does report usually smokes about a pack to pack and a half a day. However she ran out of money and his been unable to afford her cigarettes. She feels that her symptoms may be contributed to not smoking. Drug screen is negative. Alcohol level less than 10. Patient denies seizure activity On 11/20/2017 patient is alert and oriented 3 in no apparent distress there is no new episodes of nausea or vomiting she was able to tolerate diet well this morning she is complaining of back pain and bilateral hip pain she states that she had a fall recently she is also complaining of nasal congestion with postnasal drip, otherwise she denies any complaints there is no chest pain or shortness of breath no abdominal pain no diarrhea no blood in the stools and no urinary symptoms. Objective - Vital Signs Vital signs: Vital Signs Temp 96.9 F L 11/20/17 06:25 Pulse 84 11/20/17 06:25 Resp 18 11/20/17 06:25 BP 138/72 11/20/17 06:25 Pulse Ox 96 11/20/17 06:25 Intake & Output 11/19/17 11/20/17 11/20/17 18:59 06:59 18:59 Intake Total 1600 Balance 1600 Weight 74 kg Intake: Oral 1600 Other: Voiding Method Toilet # Voids 2 2 - Exam Head normocephalic and atraumatic Neck supple no JVD no goiter Lungs clear to auscultation bilaterally no wheezing or crackles Heart regular rate and rhythm S1-S2, no rub or gallop Abdomen is soft nontender nondistended positive bowel sounds no hepatosplenomegaly Extremities no edema no cyanosis or clubbing Neuro alert and orientated to 3 - Labs CBC & Chem 7: 11/20/17 07:08 11/20/17 07:08 Labs: Abnormal Lab Results - Last 24 Hours (Table) 11/19/17 11/20/17 Range/Units 09:15 07:08 Sodium 135 L (137-145) mmol/L TSH 7.210 H (0.465-4.680) mIU/L Microbiology - Last 24 Hours (Table) 11/19/17 15:30 Urine Culture - Preliminary Urine,Voided Assessment and Plan Plan: 1. Nausea with shaking and lightheadedness: possibly related to dehydration due to poor oral intake, hyponatremia and UTI. continue Zofran and IV fluids. 2. Hyponatremia: Sodium level 128 on admission. Possibly related to poor oral intake. Continue normal saline at 75 mL an hour. Repeat labs in a.m. 3. UTI: Check urine culture. Start Rocephin 1 g IV daily 4. History of thyroid cancer status post thyroidectomy. Repeat thyroid studies. Labs from 11/10/2017 show a TSH of 17.100 and a free T4 of 0.75 mcg Patient refused to take Synthroid today she was counseled in length in regards to hypothyroidism and her history of thyroid cancer she seems to understand counseling will continue to offer Synthroid 75 g daily 5. Nicotine dependence: Discussed smoking cessation greater than 3 minutes. Nicotine patch 21 mg daily 6. Recent hospitalization 11/10/2017 with syncope and paroxysmal atrial flutter patient left AGAINST MEDICAL ADVICE. We'll continue telemetry monitoring 7. recent fall with low back pain and bilateral hip pain, patient is having trouble ambulating, will check x-ray of the lumbar spine in the bilateral hips. GI prophylaxis Protonix and DVT prophylaxis Lovenox
[2017-11-20 12:45] VITALS: BMI 26.3
[2017-11-20] MEDS: FLUTICASONE 50MCG/SPRAY NASAL 16GM EA NOSTRIL SCH (13:11)
--- NOTE | 2017-11-20 14:01 | XR ---
EXAMINATION TYPE: XR Hip Bilateral Complete , 4 VIEWS DATE OF EXAM ORDERED: 11/20/2017 HISTORY: Recent fall, bilateral hip X Ray. COMPARISON: None. FINDINGS: No fracture or dislocation is seen involving either hip. Both femoral heads are nonspheric al. IMPRESSION: 1. NO ACUTE OSSEOUS LESION. 2. PLEASE CORRELATE CLINICALLY FOR FEMOROACETABULAR IMPINGEMENT SYNDROME.
--- NOTE | 2017-11-20 14:03 | XR ---
EXAMINATION TYPE: XR lumbar spine 2 or 3V , 3 VIEWS DATE OF EXAM ORDERED: 11/20/2017 HISTORY: low back pain, recent fall. COMPARISON: Previous study dated 09/27/2015. FINDINGS: There is a gentle levoscoliosis. There is a stable retrograde listhesis of L2 on L3 and L1 on L2. Alignment is otherwise maintained. T here is diffuse disc space loss with relative sparing of L4-5. There is a vacuum phenomena present at L5-S1 as well as L3-4. There is no spondylolisthesis. No fracture is seen. IMPRESSION: 1. NO ACUTE OSSEOUS LESION. 2. DEGENERATIVE CHANGE.
[2017-11-20] MEDS: ACETAMINOPHEN TAB 325 MG TAB PO PRN (22:07)
[2017-11-21] MEDS: SODIUM CHLORIDE 0.9% 1,000 ML IV SCH ×2 (05:09→16:47)
[2017-11-21] MEDS: ACETAMINOPHEN TAB 325 MG TAB PO PRN ×3 (05:09→20:01)
[2017-11-21] MEDS: LEVOTHYROXINE 75 MCG TAB PO SCH (05:59)
[2017-11-21] MEDS: PANTOPRAZOLE 40 MG TABLET PO SCH (08:24)
[2017-11-21] MEDS: FLUTICASONE 50MCG/SPRAY NASAL 16GM EA NOSTRIL SCH (08:24)
[2017-11-21] MEDS: NICOTINE 21MG/24HR PATCH TRANSDERM SCH (08:24)
[2017-11-21] MEDS: ENOXAPARIN 40 MG/0.4 ML SYRINGE SQ SCH (08:25)
[2017-11-21 08:54] LABS: Anion Gap 8 mmol/L; Blood Urea Nitrogen 12 mg/dL (7-17); Calcium 9.3 mg/dL (8.4-10.2); Carbon Dioxide 23 mmol/L (22-30); Chloride 105 mmol/L (98-107); Glucose 95 mg/dL (74-99); Magnesium 1.9 mg/dL (1.6-2.3); Potassium 4.3 mmol/L (3.5-5.1); Sodium 136 mmol/L (137-145)
--- NOTE | 2017-11-21 10:22 | P.PN ---
Subjective Progress Note Date: 11/21/17 This is a 67-year-old female, a patient of Dr. Escalera. She has a known past medical history of thyroid cancer with thyroid surgery a couple years ago. Patient reports she was taken off of medication. She also has a history of hyperlipidemia and nicotine dependence. Patient also was recently hospitalized on 11/10/2017 where she left AGAINST MEDICAL ADVICE at that time she was diagnosed with syncope with episode of paroxysmal atrial flutter. She presents to the ER today with complaints of nausea, shaky and lightheadedness. She's had a poor appetite over the last couple of days. She reports no actual vomiting. She was found have evidence of a UTI will be started on Rocephin. Also found have evidence of a sodium of 128 chloride 96. She's given IV fluids. Her thyroid levels were abnormal on 11/10/2017 TSH was elevated at 17.100 and free T4 low at 0.75. Please note on EKG she for this admission shows a normal sinus rhythm with inferior infarct age undetermined. Chest x- ray shows no acute change. Patient denies any fever or chills or sweats. Denies any vomiting or bowel movement changes. She denies any burning with urination or frequency or urgency. Patient does report usually smokes about a pack to pack and a half a day. However she ran out of money and his been unable to afford her cigarettes. She feels that her symptoms may be contributed to not smoking. Drug screen is negative. Alcohol level less than 10. Patient denies seizure activity On 11/20/2017 patient is alert and oriented 3 in no apparent distress there is no new episodes of nausea or vomiting she was able to tolerate diet well this morning she is complaining of back pain and bilateral hip pain she states that she had a fall recently she is also complaining of nasal congestion with postnasal drip, otherwise she denies any complaints there is no chest pain or shortness of breath no abdominal pain no diarrhea no blood in the stools and no urinary symptoms. On 11/21/2017 patient is alert and oriented 3 in no distress no new episodes of nausea or vomiting patient is tolerating diet well her sodium is normal at 136 she had evidence of urinary tract infection on admission and has been maintained on IV Rocephin since admission urine culture is still pending. Clinically patient denies any fever or chills no headache or dizziness no chest pain no shortness of breath no cough no nausea or vomiting no abdominal pain no diarrhea and no urinary symptoms. Objective - Vital Signs Vital signs: Vital Signs Temp 96.9 F L 11/21/17 07:00 Pulse 65 11/21/17 07:00 Resp 18 11/21/17 07:00 BP 120/65 11/21/17 07:00 Pulse Ox 97 11/21/17 07:00 Intake & Output 11/20/17 11/21/17 11/21/17 18:59 06:59 18:59 Intake Total 930 850 200 Balance 930 850 200 Weight 74 kg Intake: Intake, IV Titration 450 Amount Sodium Chloride 0.9% 1, 400 000 ml @ 75 mls/hr IV . [id number] IVANIA Rx#:[id number] cefTRIAXone 1,000 mg In 50 Sodium Chloride 0.9% 50 ml @ 100 mls/hr IVPB Q24H IVANIA Rx#:[id number] Oral 480 850 200 Other: Voiding Method Bedside Commode # Voids 3 3 - Exam Head normocephalic and atraumatic Neck supple no JVD no goiter Lungs clear to auscultation bilaterally no wheezing or crackles Heart regular rate and rhythm S1-S2, no rub or gallop Abdomen is soft nontender nondistended positive bowel sounds no hepatosplenomegaly Extremities no edema no cyanosis or clubbing Neuro alert and orientated to 3 - Labs CBC & Chem 7: 11/20/17 07:08 11/21/17 07:47 Labs: Abnormal Lab Results - Last 24 Hours (Table) 11/21/17 Range/Units 07:47 Sodium 136 L (137-145) mmol/L Microbiology - Last 24 Hours (Table) 11/19/17 15:30 Urine Culture - Preliminary Urine,Voided Gram Neg Bacilli Assessment and Plan Plan: 1. Nausea with shaking and lightheadedness: possibly related to dehydration due to poor oral intake, hyponatremia and UTI. continue Zofran and IV fluids. 2. Hyponatremia: Sodium level 128 on admission. Possibly related to poor oral intake. Continue normal saline at 75 mL an hour. Repeat labs in a.m. 3. UTI: Check urine culture. Start Rocephin 1 g IV daily 4. History of thyroid cancer status post thyroidectomy. Repeat thyroid studies. Labs from 11/10/2017 show a TSH of 17.100 and a free T4 of 0.75 mcg Patient refused to take Synthroid today she was counseled in length in regards to hypothyroidism and her history of thyroid cancer she seems to understand counseling will continue to offer Synthroid 75 g daily 5. Nicotine dependence: Discussed smoking cessation greater than 3 minutes. Nicotine patch 21 mg daily 6. Recent hospitalization 11/10/2017 with syncope and paroxysmal atrial flutter patient left AGAINST MEDICAL ADVICE. We'll continue telemetry monitoring 7. recent fall with low back pain and bilateral hip pain, patient is having trouble ambulating, will check x-ray of the lumbar spine in the bilateral hips. GI prophylaxis Protonix and DVT prophylaxis Lovenox At this time increase ambulation possible discharge to home tomorrow
--- NOTE | 2017-11-21 11:44 | P.PN ---
Subjective Patient is seen in follow-up for hyponatremia. Patient presented with nausea and vomiting. Sodium level of to 136 today. Oral intake is good. No vomiting or diarrhea. Also being treated for hypothyroidism. Maintain on Synthroid. GFR at baseline. Vital signs are stable. General: The patient appeared well nourished and normally developed. HEENT: Head exam is unremarkable. Neck is without jugular venous distension. LUNGS: Lungs are clear to auscultation and percussion. Breath sounds decreased. HEART: Rate and Rhythm are regular. First and second heart sounds normal. No murmurs, rubs or gallops. ABDOMEN: Abdominal exam reveals normal bowel sounds. Non-tender and non- distended. No evidence of peritonitis. EXTREMITITES: No clubbing, cyanosis, or edema. Objective - Vital Signs Vital signs: Vital Signs Temp 96.9 F L 11/21/17 07:00 Pulse 65 11/21/17 07:00 Resp 18 11/21/17 07:00 BP 120/65 11/21/17 07:00 Pulse Ox 97 11/21/17 07:00 Intake & Output 11/20/17 11/21/17 11/21/17 18:59 06:59 18:59 Intake Total 930 850 200 Balance 930 850 200 Weight 74 kg Intake: Intake, IV Titration 450 Amount Sodium Chloride 0.9% 1, 400 000 ml @ 75 mls/hr IV . [id number] IVANIA Rx#:[id number] cefTRIAXone 1,000 mg In 50 Sodium Chloride 0.9% 50 ml @ 100 mls/hr IVPB Q24H IVANIA Rx#:[id number] Oral 480 850 200 Other: Voiding Method Bedside Commode # Voids 3 3 - Labs CBC & Chem 7: 11/20/17 07:08 11/21/17 07:47 Labs: Abnormal Lab Results - Last 24 Hours (Table) 11/21/17 Range/Units 07:47 Sodium 136 L (137-145) mmol/L Microbiology - Last 24 Hours (Table) 11/19/17 15:30 Urine Culture - Preliminary Urine,Voided Gram Neg Bacilli Assessment and Plan Plan: Assessment: 1. Hypovolemic hyponatremia secondary to intravascular volume depletion from vomiting improving with IV hydration. Sodium level up to 136 this morning. 2. Hypothyroidism maintained on Synthroid. 3. UTI. Urine culture positive for gram-negative bacilli. Maintain on IV antibiotics. Plan: Continue normal saline at 75 mL an hour. Encourage oral intake. Follow-up urine culture.
[2017-11-21] MEDS: ALPRAZolam 0.25 MG TAB PO PRN (20:01)
[2017-11-22] MEDS: LEVOTHYROXINE 75 MCG TAB PO SCH (06:34)
[2017-11-22] MEDS: SODIUM CHLORIDE 0.9% 1,000 ML IV SCH (06:34)
[2017-11-22] MEDS: FLUTICASONE 50MCG/SPRAY NASAL 16GM EA NOSTRIL SCH (07:26)
[2017-11-22] MEDS: NICOTINE 21MG/24HR PATCH TRANSDERM SCH (07:26)
[2017-11-22] MEDS: ENOXAPARIN 40 MG/0.4 ML SYRINGE SQ SCH (07:26)
[2017-11-22] MEDS: PANTOPRAZOLE 40 MG TABLET PO SCH (07:27)
--- NOTE | 2017-11-22 09:19 | P.PN ---
Subjective Patient is seen in follow-up for hyponatremia. Patient presented with nausea and vomiting. Sodium level improved with IV hydration. Oral intake is good. No vomiting or diarrhea. Also being treated for hypothyroidism. Maintain on Synthroid. GFR at baseline. Vital signs are stable. General: The patient appeared well nourished and normally developed. HEENT: Head exam is unremarkable. Neck is without jugular venous distension. LUNGS: Lungs are clear to auscultation and percussion. Breath sounds decreased. HEART: Rate and Rhythm are regular. First and second heart sounds normal. No murmurs, rubs or gallops. ABDOMEN: Abdominal exam reveals normal bowel sounds. Non-tender and non- distended. No evidence of peritonitis. EXTREMITITES: No clubbing, cyanosis, or edema. Objective - Vital Signs Vital signs: Vital Signs Temp 98.6 F 11/22/17 07:00 Pulse 74 11/22/17 07:00 Resp 16 11/22/17 07:00 BP 157/86 11/22/17 07:00 Pulse Ox 98 11/22/17 07:00 Intake & Output 11/21/17 11/22/17 11/22/17 18:59 06:59 18:59 Intake Total 440 Balance 440 Intake: Oral 440 Other: # Voids 1 2 # Bowel Movements 1 - Labs CBC & Chem 7: 11/20/17 07:08 11/21/17 07:47 Labs: Microbiology - Last 24 Hours (Table) 11/19/17 15:30 Urine Culture - Final Urine,Voided Escherichia coli Assessment and Plan Plan: Assessment: 1. Hypovolemic hyponatremia secondary to intravascular volume depletion from vomiting improving with IV hydration. Sodium level up to 136 as of yesterday. 2. Hypothyroidism maintained on Synthroid. 3. UTI. Urine culture positive for E. coli. Maintain on IV antibiotics. Plan: Hep-Lock IV fluids. Encourage oral intake. Stable for discharge from nephrology standpoint.
[2017-11-22] MEDS: ALPRAZolam 0.25 MG TAB PO PRN ×2 (12:56→22:01)
--- NOTE | 2017-11-22 13:25 | P.PN ---
Subjective Progress Note Date: 11/22/17 This is a 67-year-old female, a patient of Dr. Escalera. She has a known past medical history of thyroid cancer with thyroid surgery a couple years ago. Patient reports she was taken off of medication. She also has a history of hyperlipidemia and nicotine dependence. Patient also was recently hospitalized on 11/10/2017 where she left AGAINST MEDICAL ADVICE at that time she was diagnosed with syncope with episode of paroxysmal atrial flutter. She presents to the ER today with complaints of nausea, shaky and lightheadedness. She's had a poor appetite over the last couple of days. She reports no actual vomiting. She was found have evidence of a UTI will be started on Rocephin. Also found have evidence of a sodium of 128 chloride 96. She's given IV fluids. Her thyroid levels were abnormal on 11/10/2017 TSH was elevated at 17.100 and free T4 low at 0.75. Please note on EKG she for this admission shows a normal sinus rhythm with inferior infarct age undetermined. Chest x- ray shows no acute change. Patient denies any fever or chills or sweats. Denies any vomiting or bowel movement changes. She denies any burning with urination or frequency or urgency. Patient does report usually smokes about a pack to pack and a half a day. However she ran out of money and his been unable to afford her cigarettes. She feels that her symptoms may be contributed to not smoking. Drug screen is negative. Alcohol level less than 10. Patient denies seizure activity On 11/20/2017 patient is alert and oriented 3 in no apparent distress there is no new episodes of nausea or vomiting she was able to tolerate diet well this morning she is complaining of back pain and bilateral hip pain she states that she had a fall recently she is also complaining of nasal congestion with postnasal drip, otherwise she denies any complaints there is no chest pain or shortness of breath no abdominal pain no diarrhea no blood in the stools and no urinary symptoms. On 11/21/2017 patient is alert and oriented 3 in no distress no new episodes of nausea or vomiting patient is tolerating diet well her sodium is normal at 136 she had evidence of urinary tract infection on admission and has been maintained on IV Rocephin since admission urine culture is still pending. Clinically patient denies any fever or chills no headache or dizziness no chest pain no shortness of breath no cough no nausea or vomiting no abdominal pain no diarrhea and no urinary symptoms. 11/22/2017 patient sodium level has shown improvement. Nephrology has cleared her for discharge. Initially this morning patient had told nursing and nephrology that she was eager to be discharged home. Later in the morning when I evaluated her patient reports that she was feeling more shaky. Initially we still planned to proceed with discharge home the patient was hesitant. She is leery of going home by herself. Repeat a set of vital patient on telemetry due to her recent hospitalization with episode of atrial fibrillation. Continue UTI treatment with Rocephin. I will consult Dr. Fung for possible inpatient rehab assessment. Consult social work for assessment of home situation. Patient denies any cough, denies any chills or sweats. Denies any nausea or vomiting denies any bowel movement changes or urinary symptoms. Denies any pain. She does report feeling more anxious. Xanax has been ordered. Objective - Vital Signs Vital signs: Vital Signs Temp 98.6 F 11/22/17 07:00 Pulse 74 11/22/17 07:00 Resp 16 11/22/17 07:00 BP 157/86 11/22/17 07:00 Pulse Ox 98 11/22/17 07:00 Intake & Output 11/21/17 11/22/17 11/22/17 18:59 06:59 18:59 Intake Total 440 Balance 440 Intake: Oral 440 Other: # Voids 1 2 # Bowel Movements 1 - Exam Head normocephalic Neck supple Lungs clear to auscultation bilaterally no wheezing or crackles Heart regular rate and rhythm S1-S2, no rub or gallop Abdomen is soft nontender nondistended positive bowel sounds no hepatosplenomegaly Extremities no edema Neuro alert and orientated to 3 - Labs CBC & Chem 7: 11/20/17 07:08 11/21/17 07:47 Labs: Microbiology - Last 24 Hours (Table) 11/19/17 15:30 Urine Culture - Final Urine,Voided Escherichia coli Assessment and Plan Assessment: 1. Nausea with shaking and lightheadedness: possibly related to dehydration due to poor oral intake, hyponatremia and UTI. continue Zofran and IV fluids. Sodium level improving at 136. Nephrology has cleared patient for discharge 2. Hyponatremia: Sodium level 128 on admission. Possibly related to poor oral intake. Continue normal saline at 75 mL an hour. Repeat labs in a.m.Sodium level improving at 136. Nephrology has cleared patient for discharge 3. UTI: Urine culture E. coli Start Rocephin 1 g IV daily 4. History of thyroid cancer status post thyroidectomy. Repeat thyroid studies. Labs from 11/10/2017 show a TSH of 17.100 and a free T4 of 0.75. This admission TSH is 7.210 and free T4 0.81 5. Nicotine dependence: Discussed smoking cessation greater than 3 minutes. Nicotine patch 21 mg daily 6. Recent hospitalization 11/10/2017 with syncope and paroxysmal atrial flutter patient left AGAINST MEDICAL ADVICE. 7. Generalized anxiety disorder: Continue Xanax as needed 8. Patient reporting that she does not feel ready for discharge. Still feeling shaky. We'll check orthostatics. Check a set of vitals. and telemetry monitoring for any further episodes atrial fibrillation. Consult Dr. Fung for possible inpatient rehab. Consult social work for home assessment. Anticipate discharge home tomorrow with home care and physical therapy GI prophylaxis Protonix and DVT prophylaxis Lovenox I performed an examination of the patient and discussed their management with the physician Racehorse Trainer. I have reviewed the Physician Racehorse Trainer's notes and agree with the documented findings and plan of care
[2017-11-22 14:44] VITALS: TEMP 98.1
[2017-11-22] MEDS: ACETAMINOPHEN TAB 325 MG TAB PO PRN (19:35)
[2017-11-23 02:33] VITALS: RESP 24
[2017-11-23] MEDS: LEVOTHYROXINE 75 MCG TAB PO SCH (05:48)
--- NOTE | 2017-11-23 06:43 | P.CONS ---
History of Present Illness - Chief Complaint Unsteady gait - History of Present Illness I had the opportunity to see patient for inpatient rehab consultation with regard to unsteady gait. She was admitted to [facility] November 19 with nausea and shaking. Seen by Dr. Martinez for hyponatremia which appears to be hypovolemic in nature. Laboratories chest x-ray chronic change. Lumbar spine with degenerative change throughout and retrolisthesis L1, 2. Right and left hips demonstrate non-spherical femoral heads consistent with impingement syndrome. PT reports supervision for transfers and gait 160 feet with small- based quad cane. OT reports modified dependent with upper dressing and supervision for lower dressing, bathing, toileting and functional mobility. Previous functional history as elicited patient: 67-year-old right-handed white female who is single and lives in basement apartment alone. On disability due to her back. Describes independent with cooking, laundry, standing shower and gait with quad cane. Doesn't drive. Dr. Lolis Escalera's doctor. Is a smoker but now in parents. Denies alcohol. Review of Systems Review of systems: ENT: Denies sneezes or discharge. Eyes: Denies discharge or photophobia. Cardiac: Denies chest pain or palpitation. Pulmonary: Denies cough or shortness of breath. Breast: Denies discharge or lumps. Gastrointestinal: Denies nausea, emesis, constipation, diarrhea. Genitourinary: Denies discharge or frequency. Musculoskeletal: Denies muscle or bone aches. Neurologic: Perhaps mild weakness. Endocrine: Denies shakes or sweats. Oncology: Denies cancers. Dermatologic: Denies rash, itching, pruritus. ALLERGY/immunology: Denies sneezes, rashes. Past Medical History Past Medical History: Cancer, Hyperlipidemia, Pneumonia Additional Past Medical History / Comment(s): neck and back pain, thyroid cancer ,bronchitis "ringing in my ears","poor circulation" History of Any Multi-Drug Resistant Organisms: None Reported Past Surgical History: No Surgical Hx Reported Additional Past Surgical History / Comment(s): Thyroid surgery, x2 neck sx Past Anesthesia/Blood Transfusion Reactions: No Reported Reaction Additional Past Anesthesia/Blood Transfusion Reaction / Comm: clausterphobia Smoking Status: Former smoker - Past Family History Mother Family Medical History: Myocardial Infarction ([place]) Brother(s) Family Medical History: Myocardial Infarction ([place]) Father Family Medical History: Myocardial Infarction ([place]) Additional Family Medical History / Comment(s): x3 mi's Medications and Allergies Home Medications Medication Instructions Recorded Confirmed Type No Known Home Medications 11/10/17 11/19/17 History Allergies Allergy/AdvReac Type Severity Reaction Status Date / Time No Known Allergies Allergy Verified 11/19/17 09:05 Physical Exam Vitals: Vital Signs Temp Pulse Resp BP Pulse Ox 11/22/17 23:00 98.1 F 70 24 149/70 97 11/22/17 14:39 98.1 F 85 17 125/79 99 11/22/17 07:00 98.6 F 74 16 157/86 98 Intake and Output 11/22/17 11/22/17 11/23/17 14:59 22:59 06:59 Other: # Voids 2 2 # Bowel Movements 1 1 Skin: Good color, texture, turgor. General: Medium build and comfortable appearance. Head: Normocephalic, atraumatic. Eyes: Symmetric. Pupils equal round. Ears: Symmetric. Hearing within normal limits. Mouth: Clear. Neck: Supple. Carotid without bruit. Cardiac: Regular rate and rhythm. Lungs: Clear anteriorly and posteriorly. Abdomen: Soft active nontender. Extremities: Normal tone. Neurological: Mental status: Alert, cooperative, pleasant. Cranial nerves: Symmetric facial tone and trapezius. Motor: Normal strength and isolation all 4 limbs. Sensation: Intact throughout. DTRs: Symmetric and equal throughout. Mobility: Reports up in room independently including bathroom privileges. Results CBC & Chem 7: 11/20/17 07:08 11/21/17 07:47 Assessment and Plan (1) Hyponatremia Current Visit: Yes Status: Acute Code(s): E87.1 - HYPO-OSMOLALITY AND HYPONATREMIA SNOMED Code(s): 05319216 Plan: Impression: 1. Unsteady gait. 2. Nausea. 3. Hyponatremia. 4. Paroxysmal atrophy fibrillation. 5. History of low back pain. 6. History of thyroid cancer. 7. Dyslipidemia. Comments and plan: At this time PT and OT are ongoing. Patient is basically at supervision level are very loose safety concern. Patient doing well and do not anticipate need of inpatient rehab.
[2017-11-23 06:49] VITALS: BP 176/94; PULSE 82
[2017-11-23] MEDS: PANTOPRAZOLE 40 MG TABLET PO SCH (07:46)
[2017-11-23] MEDS: ALPRAZolam 0.25 MG TAB PO PRN (07:46)
[2017-11-23] MEDS: FLUTICASONE 50MCG/SPRAY NASAL 16GM EA NOSTRIL SCH (07:47)
[2017-11-23] MEDS: NICOTINE 21MG/24HR PATCH TRANSDERM SCH (07:47)
[2017-11-23] MEDS: ENOXAPARIN 40 MG/0.4 ML SYRINGE SQ SCH (08:39)
--- NOTE | 2017-11-23 09:42 | P.DS ---
Providers Date of admission: 11/19/17 14:47 Expected date of discharge: 11/23/17 Attending physician: Robbie Rodriguez Consults: 11/19/17 14:43 Consult Physician Routine Consulting Provider: Dolores Bower Consult Reason/Comments: hyponatremia Do you want consulting provider notified?: Yes 11/22/17 13:11 Consult Physician Routine Consulting Provider: Rodri Santamaria Consult Reason/Comments: inpatient rehab Do you want consulting provider notified?: Yes Primary care physician: Lolis Escalera Hospital Course: Discharge Diagnosis 1. Nausea with shaking and lightheadedness: possibly related to dehydration due to poor oral intake, hyponatremia and UTI. continue Zofran and IV fluids. Sodium level improving at 136. Nephrology has cleared patient for discharge 2. Hyponatremia: Sodium level 128 on admission. Possibly related to poor oral intake. Continue normal saline at 75 mL an hour. Repeat labs in a.m.Sodium level improving at 136. Nephrology has cleared patient for discharge 3. UTI: Urine culture E. coli Start Rocephin 1 g IV daily. Patient will be DC' d home on Ceftin for 4 more days 4. History of thyroid cancer status post thyroidectomy. Repeat thyroid studies. Labs from 11/10/2017 show a TSH of 17.100 and a free T4 of 0.75. This admission TSH is 7.210 and free T4 0.81. Patient will be DC'd home on Synthroid 75 mics. Patient educated on the importance of taking medication. Patient to follow-up closely with PCP 5. Nicotine dependence: Discussed smoking cessation greater than 3 minutes. Nicotine patch 21 mg daily 6. Recent hospitalization 11/10/2017 with syncope and paroxysmal atrial flutter patient left AGAINST MEDICAL ADVICE. 7. Generalized anxiety disorder: Continue Xanax as needed 8. Patient reporting that she does not feel ready for discharge. Still feeling shaky. We'll check orthostatics. Check a set of vitals. and telemetry monitoring for any further episodes atrial fibrillation. Consult Dr. Fung for possible inpatient rehab. Consult social work for home assessment. Per Dr. Santamaria patient doing well into nonstaining for inpatient rehab. Patient today feels much improved and eager to go home. Vitals within normal limits. Per nursing staff no episodes of atrial fibrillation on telemetry. Hip x-ray states correlate clinically for femoral acetabular impingement syndrome. Patient is not complaining of any hip or leg pain. We will have patient follow-up with orthopedics in the outpatient setting. patient to follow -up with Dr. Moore talked per orthopedic services outpatient Hospital course This is a 67-year-old female, a patient of Dr. Escalera. She has a known past medical history of thyroid cancer with thyroid surgery a couple years ago. Patient reports she was taken off of medication. She also has a history of hyperlipidemia and nicotine dependence. Patient also was recently hospitalized on 11/10/2017 where she left AGAINST MEDICAL ADVICE at that time she was diagnosed with syncope with episode of paroxysmal atrial flutter. She presents to the ER today with complaints of nausea, shaky and lightheadedness. She's had a poor appetite over the last couple of days. She reports no actual vomiting. She was found have evidence of a UTI will be started on Rocephin. Also found have evidence of a sodium of 128 chloride 96. She's given IV fluids. Her thyroid levels were abnormal on 11/10/2017 TSH was elevated at 17.100 and free T4 low at 0.75. Please note on EKG she for this admission shows a normal sinus rhythm with inferior infarct age undetermined. Chest x- ray shows no acute change. Patient denies any fever or chills or sweats. Denies any vomiting or bowel movement changes. She denies any burning with urination or frequency or urgency. Patient does report usually smokes about a pack to pack and a half a day. However she ran out of money and his been unable to afford her cigarettes. She feels that her symptoms may be contributed to not smoking. Drug screen is negative. Alcohol level less than 10. Patient denies seizure activity On 11/20/2017 patient is alert and oriented 3 in no apparent distress there is no new episodes of nausea or vomiting she was able to tolerate diet well this morning she is complaining of back pain and bilateral hip pain she states that she had a fall recently she is also complaining of nasal congestion with postnasal drip, otherwise she denies any complaints there is no chest pain or shortness of breath no abdominal pain no diarrhea no blood in the stools and no urinary symptoms. On 11/21/2017 patient is alert and oriented 3 in no distress no new episodes of nausea or vomiting patient is tolerating diet well her sodium is normal at 136 she had evidence of urinary tract infection on admission and has been maintained on IV Rocephin since admission urine culture is still pending. Clinically patient denies any fever or chills no headache or dizziness no chest pain no shortness of breath no cough no nausea or vomiting no abdominal pain no diarrhea and no urinary symptoms. 11/22/2017 patient sodium level has shown improvement. Nephrology has cleared her for discharge. Initially this morning patient had told nursing and nephrology that she was eager to be discharged home. Later in the morning when I evaluated her patient reports that she was feeling more shaky. Initially we still planned to proceed with discharge home the patient was hesitant. She is leery of going home by herself. Repeat a set of vital patient on telemetry due to her recent hospitalization with episode of atrial fibrillation. Continue UTI treatment with Rocephin. I will consult Dr. Fung for possible inpatient rehab assessment. Consult social work for assessment of home situation. Patient denies any cough, denies any chills or sweats. Denies any nausea or vomiting denies any bowel movement changes or urinary symptoms. Denies any pain. She does report feeling more anxious. Xanax has been ordered. On 11/23/2017 patient is starting to leave AGAINST MEDICAL ADVICE. Patient states she feels much improved from yesterday. Patient has been cleared for discharge from consulting providers. Patient says shakiness has resolved. Per nursing staff no episodes of atrial fibrillation on telemetry. Patient to follow-up outpatient with orthopedic services and PCP. Patient denies chest pain or shortness of breath. Denies any urinary burning or frequency. Patient denies any nausea vomiting or diarrhea. Patient educated on the importance of taking her Synthroid medication I performed an examination of the patient and discussed their management with the Nurse Practitioner. I have reviewed the Nurse Practitioner's notes and agree with the documented findings and plan of care Patient Condition at Discharge: Stable Plan - Discharge Summary Discharge Rx Participant: No New Discharge Prescriptions: New Cefuroxime Axetil [Ceftin] 500 mg PO BID 4 Days #8 tab Levothyroxine Sodium [Synthroid] 75 mcg PO DAILY@0630 #30 tab Nicotine 21Mg/24Hr Patch [Habitrol] 1 patch TRANSDERM DAILY #30 patch Discharge Medication List Cefuroxime Axetil [Ceftin] 500 mg PO BID 4 Days #8 tab 11/23/17 [Rx] Levothyroxine Sodium [Synthroid] 75 mcg PO DAILY@0630 #30 tab 11/23/17 [Rx] Nicotine 21Mg/24Hr Patch [Habitrol] 1 patch TRANSDERM DAILY #30 patch 11/23/17 [ Rx] Follow up Appointment(s)/Referral(s): Lolis Escalera DO [Primary Care Provider] - 1-2 days Tony Angel DO [Doctor of Osteopathic Medicine] - 1 Week Patient Instructions/Handouts: Hyponatremia (DC), Fall Prevention (DC) Activity/Diet/Wound Care/Special Instructions: Diet regular Activity as tolerated Discharge Disposition: HOME SELF-CARE
== END 2017-11-23 10:13 | disposition home or self-care (01) | DRG 690 ==
LOC: EC 08:39 → 4MS4W 12:46 → OBSVTOIN 14:47
PROVIDERS: ADMIT Internal Medicine; ATTEND Internal Medicine
DX: N39.0 Urinary tract infection, site not specified (principal); E87.1 Hypo-osmolality and hyponatremia; I48.0 Paroxysmal atrial fibrillation; E86.1 Hypovolemia; E86.0 Dehydration; E89.0 Postprocedural hypothyroidism; E78.5 Hyperlipidemia, unspecified; B96.20 Unspecified Escherichia coli [E. coli] as the cause of diseases classified elsewhere; F41.1 Generalized anxiety disorder; M47.816 Spondylosis without myelopathy or radiculopathy, lumbar region; M25.852 Other specified joint disorders, left hip; M25.851 Other specified joint disorders, right hip; M54.2 Cervicalgia; F40.240 Claustrophobia; F17.210 Nicotine dependence, cigarettes, uncomplicated; Z71.6 Tobacco abuse counseling; Z87.01 Personal history of pneumonia (recurrent); Z85.850 Personal history of malignant neoplasm of thyroid; Z82.49 Family history of ischemic heart disease and other diseases of the circulatory system
CPT/HCPCS: 36415; 71046; 72100; 73521; 80048; 80053; 80306; 80320; 81001; 83735; 84439; 84443; 84484; 85025; 87077; 87086; 87186; 93005; 96361; 96374; 99285

== ENCOUNTER 2018-12-09 22:30 | Inpatient (IN) | payer MEDICARE, OTHER ==
[2018-12-09] MEDS ORDERED: ADENOSINE 3 MG/ML 2 ML VIAL IVP STA (22:50)
[2018-12-09] MEDS ORDERED: SODIUM CHLORIDE 0.9% 1,000 ML IV STA (22:56)
--- NOTE | 2018-12-09 23:05 | ED ---
General Adult HPI - General Chief complaint: Arrhythmia/Palpitations Stated complaint: tachycardia Time Seen by Provider: 12/09/18 22:40 Source: patient, RN/MD, EMS Mode of arrival: ambulatory Limitations: no limitations - History of Present Illness Initial comments: Dictation was produced using [employer] dictation software. please excuse any grammatical, word or spelling errors. Chief Complaint: 68-year-old female brought in by EMS from shelter for tachycardia. History of Present Illness: She is 68-year-old female she is brought in by EMS for tachycardia. Patient has been having intermittent episodes of tachycardia since yesterday. According to [employer] patient does not have history of cardiac disease. She currently resides at the shelter for poor social situation. Patient initially had symptoms 2 or 3 days ago. She was refusing transfer to the emergency department at that time. According to [facility] from [facility] she had a similar event recently. She had heart rate in the 170s. She was advised by EMS however adamantly refused come to the emergency department. Patient is a poor historian however. Staff reports that this patient's normal baseline mental status. Today she had another episode lasting for several hours. She was finally convinced to come to the emergency department. Nursing documents shows that patient has a history of anxiety, insomnia, hypothyroidism and metabolic encephalopathy. Patient has any chest pain at this time. EMS reports that upon their initial evaluation patient is tachycardic into the 170s with a normal blood pressure. The ROS documented in this emergency department record has been reviewed and confirmed by me. Those systems with pertinent positive or negative responses have been documented in the HPI. All other systems are other negative and/or noncontributory. PHYSICAL EXAM: General Impression: Alert and oriented x3, not in acute distress, mildly pale HEENT: Normocephalic atraumatic, extra-ocular movements intact, pupils equal and reactive to light bilaterally, mucous membranes moist. Cardiovascular: Tachycardic, no murmurs Chest: Lungs clear to auscultation bilaterally, no rhonchi, no wheeze, no rales Abdomen: Bowel sounds present, abdomen soft, non-tender, non-distended, no organomegaly Musculoskeletal: Pulses present and equal in all extremities, no peripheral edema Motor: no focal deficits noted Neurological: CN II-XII grossly intact, no focal motor or sensory deficits noted Skin: Intact with no visualized rashes ED course: 68-year-old female brought to the emergency department by EMS for tachycardia. Signs upon arrival shows heart rate of 166, blood pressure 94/81 cumbersome vital signs within acceptable limits. Patient did not appear to be in extremities at this time. forming machine tender showed tachycardia in the 170s with a narrow complex and regular rate. EKG was performed immediately showing phthisis consistent with supraventricular tachycardia with a rate in the 170s. Patient was placed on cardiac placed on continuous monitoring and continuous EKG. Patient is given 6 mg of adenosine with successful chemical cardioversion. Repeat EKG showed normal sinus rhythm with rate of 97. Patient appears well at bedside.Laboratory evaluation obtained. CBC, coag panel unremarkable. Elevated d-dimer with a measurement of 0.67. Metabolic panel is grossly unremarkable. TSH slightly elevated at 6.770. Chest x-ray shows mild pulmonary edema. Given elevated d-dimer and new-onset SVT and patient with no cardiac history there was concern of pulmonary embolus. CT angios the chest shows no findings to suggest pulmonary embolus. Patient reevaluated at bedside found to be in stable medical condition. Discussed patient case with Laney Rosas was commercial sales consultant for Dr. Luevano's group was went except patient's care. Patient agreeable with disposition. EKG interpretation: Ventricular rate 176, SVT, QS 90, QTC 465. Consistent with superventricular tachycardia. Repeat EKG performed showing ventricular rate of 97, DC interval 186, QS 78, QTC 429, normal sinus rhythm - Related Data Home Medications Medication Instructions Recorded Confirmed ALPRAZolam [Xanax] 0.5 mg PO TID@0600,1300,2100 12/09/18 12/09/18 Acetaminophen Tab [Tylenol Tab] 650 mg PO Q4H PRN 12/09/18 12/09/18 Atorvastatin [Lipitor] 10 mg PO HS@2100 12/09/18 12/09/18 Levothyroxine Sodium [Synthroid] 75 mcg PO DAILY@0600 12/09/18 12/09/18 Loratadine 10 mg PO HS@2100 12/09/18 12/09/18 Melatonin 5 mg PO HS@2100 12/09/18 12/09/18 risperiDONE [RisperDAL] 0.5 mg PO HS@2100 12/09/18 12/09/18 Allergies Allergy/AdvReac Type Severity Reaction Status Date / Time No Known Allergies Allergy Verified 12/09/18 22:54 Review of Systems ROS Statement: Those systems with pertinent positive or pertinent negative responses have been documented in the HPI. ROS Other: All systems not noted in ROS Statement are negative. Past Medical History Past Medical History: Cancer, Hyperlipidemia, Pneumonia Additional Past Medical History / Comment(s): neck and back pain, thyroid cancer,bronchitis "ringing in my ears","poor circulation" History of Any Multi-Drug Resistant Organisms: None Reported Past Surgical History: No Surgical Hx Reported Additional Past Surgical History / Comment(s): Thyroid surgery, x2 neck sx Past Anesthesia/Blood Transfusion Reactions: No Reported Reaction Additional Past Anesthesia/Blood Transfusion Reaction / Comment(s): clausterphobia Past Psychological History: No Psychological Hx Reported Smoking Status: Former smoker - Past Family History Mother Family Medical History: Myocardial Infarction ([place]) Brother(s) Family Medical History: Myocardial Infarction ([place]) Father Family Medical History: Myocardial Infarction ([place]) Additional Family Medical History / Comment(s): x3 mi's General Exam Limitations: no limitations Course Vital Signs 12/09/18 12/09/18 12/09/18 22:45 22:52 23:18 Temperature 98 F 98 F Pulse Rate 176 H 95 97 Respiratory 24 20 18 Rate Blood Pressure 94/81 115/74 110/76 O2 Sat by Pulse 95 97 97 Oximetry 12/10/18 00:00 Temperature Pulse Rate 99 Respiratory 20 Rate Blood Pressure 162/90 O2 Sat by Pulse 97 Oximetry Medical Decision Making - Lab Data Result diagrams: 12/09/18 22:52 12/09/18 22:52 Lab Results 12/09/18 12/09/18 12/09/18 Range/Units 22:52 22:52 22:52 WBC 10.4 (3.8-10.6) k/uL RBC 4.34 (3.80-5.40) m/uL Hgb 12.9 (11.4-16.0) gm/dL Hct 39.2 (34.0-46.0) % MCV 90.2 (80.0-100.0) fL MCH 29.8 (25.0-35.0) pg MCHC 33.0 (31.0-37.0) g/dL RDW 13.1 (11.5-15.5) % Plt Count 223 (150-450) k/uL Neutrophils % 70 % Lymphocytes % 18 % Monocytes % 7 % Eosinophils % 3 % Basophils % 0 % Neutrophils # 7.3 (1.3-7.7) k/uL Lymphocytes # 1.9 (1.0-4.8) k/uL Monocytes # 0.7 (0-1.0) k/uL Eosinophils # 0.3 (0-0.7) k/uL Basophils # 0.0 (0-0.2) k/uL PT 10.0 (9.0-12.0) sec INR 0.9 (<1.2) APTT 22.3 (22.0-30.0) sec D-Dimer 0.67 H (<0.60) mg/L FEU Sodium 136 L (137-145) mmol/L Potassium 4.3 (3.5-5.1) mmol/L Chloride 104 (98-107) mmol/L Carbon Dioxide 22 (22-30) mmol/L Anion Gap 10 mmol/L BUN 21 H (7-17) mg/dL Creatinine 0.89 (0.52-1.04) mg/dL Est GFR (CKD-EPI)AfAm 78 (>60 ml/min/1.73 sqM) Est GFR (CKD-EPI)NonAf 68 (>60 ml/min/1.73 sqM) Glucose 130 H (74-99) mg/dL Calcium 9.1 (8.4-10.2) mg/dL Magnesium 1.8 (1.6-2.3) mg/dL Total Bilirubin 0.2 (0.2-1.3) mg/dL AST 62 H (14-36) U/L ALT 97 H (9-52) U/L Alkaline Phosphatase 133 H (38-126) U/L Troponin I (0.000-0.034) ng/mL Total Protein 6.5 (6.3-8.2) g/dL Albumin 3.6 (3.5-5.0) g/dL TSH 6.770 H (0.465-4.680) mIU/L 12/09/18 Range/Units 22:52 WBC (3.8-10.6) k/uL RBC (3.80-5.40) m/uL Hgb (11.4-16.0) gm/dL Hct (34.0-46.0) % MCV (80.0-100.0) fL MCH (25.0-35.0) pg MCHC (31.0-37.0) g/dL RDW (11.5-15.5) % Plt Count (150-450) k/uL Neutrophils % % Lymphocytes % % Monocytes % % Eosinophils % % Basophils % % Neutrophils # (1.3-7.7) k/uL Lymphocytes # (1.0-4.8) k/uL Monocytes # (0-1.0) k/uL Eosinophils # (0-0.7) k/uL Basophils # (0-0.2) k/uL PT (9.0-12.0) sec INR (<1.2) APTT (22.0-30.0) sec D-Dimer (<0.60) mg/L FEU Sodium (137-145) mmol/L Potassium (3.5-5.1) mmol/L Chloride (98-107) mmol/L Carbon Dioxide (22-30) mmol/L Anion Gap mmol/L BUN (7-17) mg/dL Creatinine (0.52-1.04) mg/dL Est GFR (CKD-EPI)AfAm (>60 ml/min/1.73 sqM) Est GFR (CKD-EPI)NonAf (>60 ml/min/1.73 sqM) Glucose (74-99) mg/dL Calcium (8.4-10.2) mg/dL Magnesium (1.6-2.3) mg/dL Total Bilirubin (0.2-1.3) mg/dL AST (14-36) U/L ALT (9-52) U/L Alkaline Phosphatase (38-126) U/L Troponin I <0.012 (0.000-0.034) ng/mL Total Protein (6.3-8.2) g/dL Albumin (3.5-5.0) g/dL TSH (0.465-4.680) mIU/L Critical Care Time Critical Care Time: Yes Total Critical Care Time: 31 (Bedside monitoring in patient with tachydysrhythmia requiring chemical cardioversion) Disposition Clinical Impression: Dysrhythmia, cardiac Disposition: ADMITTED IP TO THIS HOSP Condition: Fair Referrals: None,Stated [REFERRING] - 1-2 days Decision Time: 00:33
[2018-12-09 23:06] LABS: Basophils % (A) 0 %; Eosinophils # (A) 0.3 k/uL (0-0.7); Eosinophils % (A) 3 %; HCT 39.2 % (34.0-46.0); HGB 12.9 gm/dL (11.4-16.0); Lymphocytes # (A) 1.9 k/uL (1.0-4.8); Lymphocytes % (A) 18 %; MCH 29.8 pg (25.0-35.0); MCV 90.2 fL (80.0-100.0); Mean Platelet Volume 7.9; Monocytes # (A) 0.7 k/uL (0-1.0); Monocytes % (A) 7 %; Neutrophils # (A) 7.3 k/uL (1.3-7.7); Neutrophils % (A) 70 %; Platelet Count 223 k/uL (150-450); RBC 4.34 m/uL (3.80-5.40); RDW 13.1 % (11.5-15.5); WBC 10.4 k/uL (3.8-10.6)
[2018-12-09 23:14] LABS: Albumin 3.6 g/dL (3.5-5.0); Calcium 9.1 mg/dL (8.4-10.2); Total Bilirubin 0.2 mg/dL (0.2-1.3); Total Protein 6.5 g/dL (6.3-8.2)
[2018-12-09 23:16] LABS: Potassium 4.3 mmol/L (3.5-5.1)
[2018-12-09 23:17] LABS: Magnesium 1.8 mg/dL (1.6-2.3)
[2018-12-09 23:20] LABS: INR 0.9 (<1.2); Partial Thromboplastin Time 22.3 sec (22.0-30.0)
--- NOTE | 2018-12-09 23:24 | XR ---
EXAMINATION TYPE: XR chest 2V DATE OF EXAM: 12/09/2018 COMPARISON: 11/19/2017 HISTORY: Irregular heart rate TECHNIQUE: Frontal and lateral views of the chest are obtained. FINDINGS: There is coarse interstitial density in the lungs. Costophrenic angles are clear. There ar e chest leads. Heart size is fairly normal. IMPRESSION: There is pulmonary interstitial edema that is new compared to old exam and could relate to pneumonia or acute heart failure.
[2018-12-09 23:27] LABS: D-Dimer 0.67 mg/L FEU (<0.60)
--- NOTE | 2018-12-10 00:24 | CT ---
EXAMINATION TYPE: CT angio chest DATE OF EXAM: 12/10/2018 12:12 AM COMPARISON: None HISTORY: R/O PE, SOB CT DLP: 513.00 mGycm Automated exposure control for dose reduction was used. CONTRAST: CTA scan of the thorax is performed with IV Contrast, patient injected with 70 mL of Isovue 370, pulm onary embolism protocol. There are 3-D post processed images.. FINDINGS: There is moderate-sized hiatal hernia. There is some mild infiltrate and atelectasis at the posterior lung bases. There is no pleural effusion. There is no pericardial effusion. There are paratracheal lymph nodes that measure up to 1.6 cm. There are bronchial lymph nodes that me asure up to 1 cm. Thoracic aorta is intact. There is no aneurysm or dissection. The aorta measures up to 3.3 cm. There is normal contrast opacification of the pulmonary arteries. I see no filling defect. There are a few bilateral axillary lymph nodes. The bony thorax is intact. IMPRESSION: NO EVIDENCE OF PULMONARY EMBOLISM. CARDIOMEGALY WITH MILD BASILAR PULMONARY INFILTRATES. MILD MEDIASTINAL AND AXILLARY ADENOPATHY.
[2018-12-10] MEDS ORDERED: NALOXONE 0.4 MG/ML 1 ML VIAL IV PRN (00:28)
[2018-12-10] MEDS ORDERED: ONDANSETRON 4 MG/2 ML VIAL IVP PRN (00:28)
[2018-12-10 00:57] LABS: Appearance,Urine Clear (Clear); Bilirubin,Urine Negative (Negative); Blood,Urine Small (Negative); Color,Urine Light Yellow; Glucose,Urine (UA) Negative (Negative); Hyaline Casts,Urine 1 /lpf (0-2); Ketones,Urine Negative (Negative); Leukocyte Esterase,Urine Small (Negative); Mucus,Urine Rare /hpf; Nitrite,Urine Negative (Negative); PH, Urine 5.5 (5.0-8.0); Protein,Urine Negative (Negative); RBC,Urine 4 /hpf (0-5); Specific Gravity,Urine 1.016 (1.001-1.035); Urobilinogen,Urine <2.0 mg/dL (<2.0)
[2018-12-10 01:47] VITALS: BMI 35.7
[2018-12-10] MEDS: ALPRAZolam 0.5 MG TAB PO SCH ×3 (02:00→21:26)
[2018-12-10] MEDS: SODIUM CHLORIDE 0.9% 1,000 ML IV SCH (02:00)
[2018-12-10] MEDS: LEVOTHYROXINE 75 MCG TAB PO SCH (06:47)
[2018-12-10] MEDS: PANTOPRAZOLE 40 MG/10 ML VIAL IV SCH (09:03)
[2018-12-10] MEDS: METOPROLOL TARTRATE 25 MG TAB PO SCH ×2 (10:52→21:26)
--- NOTE | 2018-12-10 11:04 | P.CRDCN ---
History of Present Illness Consult date: 12/10/18 Chief complaint: Heart racing History of present illness: This is a pleasant 68-year-old female patient with multiple psychiatric issues with is a resident at [facility] facility was brought to the emergency room because she was feeding her heart was racing. The patient somewhat is a poor historian. For the last few days, she has been experiencing intermittent episodes of heart racing and fluttering associated with dizziness. No syncope. The patient was refusing to come to the emergency room at the beginning of her symptoms. She was brought yesterday where she was found to be in narrow complex tachycardia consistent with SVT. The patient unable to tell if she was seen by a battery engineer in the past and if she was diagnosed with SVT in the past. She stated that she never been diagnosed with any coronary artery disease or janelle estive heart failure or any cardiac arrhythmia and never seen by any battery engineer in the past. In the emergency room she was given adenosine and she was converted to normal sinus mechanism and has been maintaining normal sinus mechanism. She is not on any AV cuco jackeline agents at home. This time she denies any symptoms of chest pain or chest discomfort, shortness of breath, dizziness, or syncope. I did review the rhythm strips in the chart which revealed narrow complex tachycardia consistent with SVT. D-dimer came in to be elevated but the computed tomography scan of the chest did not show any PE but it did show it seems to be cardiomegaly. At this point, we will rule out acute coronary event. We'll obtain serial cardiac enzymes. We'll obtain an echocardiogram was Doppler. Also I am going to start the patient on metoprolol 25 mg by mouth twice a day. I would advise monitoring the patient for additional 24 hours. Past Medical History Past Medical History: Cancer, COPD, Hyperlipidemia, Pneumonia, Thyroid Disorder Additional Past Medical History / Comment(s): neck and back pain, thyroid cancer,bronchitis "ringing in my ears","poor circulation". Hypothyroidism, UTI, metabolic encephalopathy History of Any Multi-Drug Resistant Organisms: None Reported Past Surgical History: No Surgical Hx Reported Additional Past Surgical History / Comment(s): Thyroid surgery, x2 neck sx Past Anesthesia/Blood Transfusion Reactions: No Reported Reaction Additional Past Anesthesia/Blood Transfusion Reaction / Comment(s): claustrophobia Past Psychological History: Unable to Obtain Additional Psychological History / Comment(s): "psychotic disorder with delusions" per [facility] on the [facility] records. Smoking Status: Never smoker Past Alcohol Use History: None Reported Additional Past Alcohol Use History / Comment(s): started smoking at age 18 smokes 1/2 ppd Past Drug Use History: None Reported - Past Family History Mother Family Medical History: Myocardial Infarction ([place]) Brother(s) Family Medical History: Myocardial Infarction ([place]) Father Family Medical History: Myocardial Infarction ([place]) Additional Family Medical History / Comment(s): x3 mi's Medications and Allergies Home Medications Medication Instructions Recorded Confirmed Type ALPRAZolam [Xanax] 0.5 mg PO TID@0600,1300,2100 12/09/18 12/09/18 History Acetaminophen Tab [Tylenol Tab] 650 mg PO Q4H PRN 12/09/18 12/09/18 History Atorvastatin [Lipitor] 10 mg PO HS@2100 12/09/18 12/09/18 History Levothyroxine Sodium [Synthroid] 75 mcg PO DAILY@0600 12/09/18 12/09/18 History Loratadine 10 mg PO HS@2100 12/09/18 12/09/18 History Melatonin 5 mg PO HS@2100 12/09/18 12/09/18 History risperiDONE [RisperDAL] 0.5 mg PO HS@2100 12/09/18 12/09/18 History Allergies Allergy/AdvReac Type Severity Reaction Status Date / Time No Known Allergies Allergy Verified 12/09/18 22:54 Physical Exam Vitals: Vital Signs Temp Pulse Pulse Resp BP BP Pulse Ox 12/10/18 08:00 98.1 F 78 18 114/65 97 12/10/18 04:00 99.0 F 100 22 91/60 94 L 12/10/18 01:26 94 18 152/68 97 12/10/18 00:00 99 20 162/90 97 12/09/18 23:18 97 18 110/76 97 12/09/18 22:52 98 F 95 20 115/74 97 12/09/18 22:45 98 F 176 H 24 94/81 95 Intake and Output 12/09/18 12/10/18 12/10/18 22:59 06:59 14:59 Intake Total 80 Output Total 375 Balance -295 Intake: Intake, IV Titration 80 Amount Sodium Chloride 0.9% 1, 80 000 ml @ 20 mls/hr IV . Q24H [facility] Rx#:[id number] Output: Urine 375 Other: Voiding Method Toilet Weight 95.209 kg 94.5 kg - Constitutional General appearance: no acute distress - Respiratory Respiratory: bilateral: CTA - Cardiovascular Rhythm: regular Heart sounds: normal: S1, S2 Results 12/09/18 22:52 12/09/18 22:52 Cardiac Enzymes 12/09/18 12/09/18 Range/Units 22:52 22:52 AST 62 H (14-36) U/L Troponin I <0.012 (0.000-0.034) ng/mL Coagulation 12/09/18 Range/Units 22:52 PT 10.0 (9.0-12.0) sec APTT 22.3 (22.0-30.0) sec CBC 12/09/18 Range/Units 22:52 WBC 10.4 (3.8-10.6) k/uL RBC 4.34 (3.80-5.40) m/uL Hgb 12.9 (11.4-16.0) gm/dL Hct 39.2 (34.0-46.0) % Plt Count 223 (150-450) k/uL Comprehensive Metabolic Panel 12/09/18 Range/Units 22:52 Sodium 136 L (137-145) mmol/L Potassium 4.3 (3.5-5.1) mmol/L Chloride 104 (98-107) mmol/L Carbon Dioxide 22 (22-30) mmol/L BUN 21 H (7-17) mg/dL Creatinine 0.89 (0.52-1.04) mg/dL Glucose 130 H (74-99) mg/dL Calcium 9.1 (8.4-10.2) mg/dL AST 62 H (14-36) U/L ALT 97 H (9-52) U/L Alkaline Phosphatase 133 H (38-126) U/L Total Protein 6.5 (6.3-8.2) g/dL Albumin 3.6 (3.5-5.0) g/dL Current Medications Generic Name Dose Route Start Last Admin Trade Name Freq PRN Reason Stop Dose Admin Alprazolam 0.5 mg 12/10/18 06:00 12/10/18 02:00 Xanax PO 0.5 mg TID@0600,1300,2100 IVANIA Administration Atorvastatin Calcium 10 mg 12/10/18 21:00 Lipitor PO HS@2100 IVANIA Sodium Chloride 1,000 mls @ 20 mls/hr 12/10/18 00:30 12/10/18 02:00 Saline 0.9% IV 20 mls/hr .Q24H IVANIA Administration Levothyroxine Sodium 75 mcg 12/10/18 06:00 12/10/18 06:47 Synthroid PO 75 mcg DAILY@0600 IVANIA Administration Metoprolol Tartrate 25 mg 12/10/18 10:00 12/10/18 10:52 Lopressor PO 25 mg BID IVANIA Administration Naloxone HCl 0.2 mg 12/10/18 00:28 Narcan IV Q2M PRN Opioid Reversal Ondansetron HCl 4 mg 12/10/18 00:28 Zofran IVP Q8HR PRN Nausea And Vomiting Pantoprazole Sodium 40 mg 12/10/18 09:00 12/10/18 09:03 Protonix IV 40 mg DAILY IVANIA Administration Risperidone 0.5 mg 12/10/18 21:00 Risperdal PO HS@2100 IVANIA Intake and Output 12/09/18 12/10/18 12/10/18 22:59 06:59 14:59 Intake Total 80 Output Total 375 Balance -295 Intake: Intake, IV Titration 80 Amount Sodium Chloride 0.9% 1, 80 000 ml @ 20 mls/hr IV . Q24H [facility] Rx#:[id number] Output: Urine 375 Other: Voiding Method Toilet Weight 95.209 kg 94.5 kg 12/09/18 22:52 12/09/18 22:52 Assessment and Plan Assessment: Assessment #1 SVT, the SVT was documented. The patient now is in normal sinus mechanism #2 multiple comorbid conditions Plan #1 rule out acute coronary event #2 PE was ruled out. #3 check the TSH #4 obtain an echocardiogram was Doppler #5 start the patient on metoprolol #6 monitor the patient for additional 24 hours Thank you for allowing us participate in her care
--- NOTE | 2018-12-10 12:43 | P.HPIM ---
History of Present Illness H&P Date: 12/10/18 Lolis Kellogg is a 68-year-old female patient who resides at a alf due to multiple psychiatry care and social issues, patient was complaining on and off of feeling her heart racing for the last 2 weeks, she has refused to come to emergency room on previous occasions, yesterday she was agreeable to come to emergency room, EMS were called and patient was brought in to [facility] emergency room, EKG revealed evidence of narrow complex tachycardia consistent with supraventricular tachycardia, patient returned spontaneously to normal sinus rhythm, her d-dimer was elevated CT angiogram of the chest was done and was negative for any evidence of pulmonary embolism however it revealed evidence of cardiomegaly, patient denies any previous history of coronary artery disease, congestive heart failure, or any kind of cardiac arrhythmia, she was admitted to telemetry floor cardiology consultation was requested, at this time patient denies any complaints there is no chest pain or shortness of breath, her only complaint earlier at the alf was feeling her heart racing. Past Medical History Past Medical History: Cancer, COPD, Hyperlipidemia, Pneumonia, Thyroid Disorder Additional Past Medical History / Comment(s): neck and back pain, thyroid cancer,bronchitis "ringing in my ears","poor circulation". Hypothyroidism, UTI, metabolic encephalopathy History of Any Multi-Drug Resistant Organisms: None Reported Past Surgical History: No Surgical Hx Reported Additional Past Surgical History / Comment(s): Thyroid surgery, x2 neck sx Past Anesthesia/Blood Transfusion Reactions: No Reported Reaction Additional Past Anesthesia/Blood Transfusion Reaction / Comment(s): claustr ophobia Past Psychological History: Unable to Obtain Additional Psychological History / Comment(s): "psychotic disorder with delusions" per [facility] on the [facility] records. Smoking Status: Never smoker Past Alcohol Use History: None Reported Additional Past Alcohol Use History / Comment(s): started smoking at age 18 smokes 1/2 ppd Past Drug Use History: None Reported - Past Family History Mother Family Medical History: Myocardial Infarction ([place]) Brother(s) Family Medical History: Myocardial Infarction [place]) Father Family Medical History: Myocardial Infarction [place]) Additional Family Medical History / Comment(s): x3 mi's Medications and Allergies Home Medications Medication Instructions Recorded Confirmed Type ALPRAZolam [Xanax] 0.5 mg PO TID@0600,1300,2100 12/09/18 12/09/18 History Acetaminophen Tab [Tylenol Tab] 650 mg PO Q4H PRN 12/09/18 12/09/18 History Atorvastatin [Lipitor] 10 mg PO HS@2100 12/09/18 12/09/18 History Levothyroxine Sodium [Synthroid] 75 mcg PO DAILY@0600 12/09/18 12/09/18 History Loratadine 10 mg PO HS@2100 12/09/18 12/09/18 History Melatonin 5 mg PO HS@209912/09/18 12/09/18 History risperiDONE [RisperDAL] 0.5 mg PO HS@2100 12/09/18 12/09/18 History Allergies Allergy/AdvReac Type Severity Reaction Status Date / Time No Known Allergies Allergy Verified 12/09/18 22:54 Physical Exam Vitals: Vital Signs Temp Pulse Pulse Resp BP BP Pulse Ox 12/10/18 08:00 98.1 F 78 18 114/65 97 12/10/18 04:00 99.0 F 100 22 91/60 94 L 12/10/18 01:26 94 18 152/68 97 12/10/18 00:00 99 20 162/90 97 12/09/18 23:18 97 18 110/76 97 12/09/18 22:52 98 F 95 20 115/74 97 12/09/18 22:45 98 F 176 H 24 94/81 95 Intake and Output 12/09/18 12/10/18 12/10/18 22:59 06:59 14:59 Intake Total 80 360 Output Total 375 Balance -295 360 Intake: Intake, IV Titration 80 Amount Sodium Chloride 0.9% 1, 80 000 ml @ 20 mls/hr IV . Q24H [facility] Rx#:[id number] Oral 360 Output: Urine 375 Other: Voiding Method Toilet Weight 95.209 kg 94.5 kg In general patient is alert and oriented 3 in no apparent distress HEENT head normocephalic and atraumatic Neck is supple no JVD no goiter no lymphadenopathy Chest exam reveals a few scattered crackles no wheezing Cardiac exam reveals regular heart sounds S1 and S2 no gallops no murmurs Abdomen is soft nontender no organomegaly with normal bowel sounds Extremity exam reveals no edema no cyanosis or clubbing Neurological examination reveals no gross focal deficit Results CBC & Chem 7: 10/11/19 22:52 12/09/18 22:52 Labs: Abnormal Lab Results - Last 24 Hours (Table) 12/09/18 12/09/18 12/10/18 Range/Units 22:52 22:52 00:41 D-Dimer 0.67 H (<0.60) mg/L FEU Sodium 136 L (137-145) mmol/L BUN 21 H (7-17) mg/dL Glucose 130 H (74-99) mg/dL AST 62 H (14-36) U/L ALT 97 H (9-52) U/L Alkaline Phosphatase 133 H (38-126) U/L TSH 6.770 H (0.465-4.680) mIU/L Urine Blood Small H (Negative) Ur Leukocyte Esterase Small H (Negative) Urine Mucus Rare H (None) /hpf Thrombosis Risk Factor Assmnt - Choose All That Apply Any of the Below Risk Factors Present?: Yes Each Factor Represents 1 point: Obesity (BMI >25) Other Risk Factors: Yes Each Risk Factor Represents 2 Points: Age 61-74 years Other congenital or acquired thrombophilia - If yes, enter type in comment: No Thrombosis Risk Factor Assessment Total Risk Factor Score: 3 Thrombosis Risk Factor Assessment Level: Moderate Risk Assessment and Plan Plan: #1 palpitation was feeling her heart racing, and evidence of supraventricular tachycardia on EKG on arrival to emergency room, at this time patient is normal sinus rhythm, cardiology consultation requested, for evaluation. #2 evidence of cardiomegaly on chest computed tomography scan, echocardiogram or #3 underlying history of hypothyroidism maintained on levothyroxine 75 g daily Will check TSH level #4 underlying history of hyperlipidemia maintained on Lipitor #5 underlying history of multiple psychiatric illnesses maintained on Xanax and Risperdal #6 elevated liver enzymes with AST at 62 and a LT at 97 , at this time will hold Lipitor and check liver ultrasound #7 computed tomography scan of the chest revealing evidence of by basilar pulmonary infiltrate and mild mediastinal and axillary adenopathy pulmonary consultation will be requested Will follow during this admission prognosis is guarded patient is a very poor historian will follow closely
--- NOTE | 2018-12-10 14:07 | ECHOF ---
Referral Reason:SVT on admission MEASUREMENTS -------- HEIGHT: 162.6 cm WEIGHT: 94.3 kg BP: 114/65 RVIDd: 2.9 cm (< 3.3) IVSd: 1.4 cm (0.6 - 1.1) LVIDd: 3.6 cm (3.9 - 5.3) LVPWd: 1.4 cm (0.6 - 1.1) IVSs: 1.7 cm LVIDs: 2.3 cm LVPWs: 1.6 cm Ao Diam: 3.2 cm (2.0 - 3.7) AV Cusp: 2.1 cm (1.5 - 2.6) LA Diam: 5.2 cm (2.7 - 3.8) MV EXCURSION: 15.119 mm (> 18.000) MV EF SLOPE: 72 mm/s (70 - 150) EPSS: 0.3 cm MV E Andrea: 0.95 m/s MV DecT: 173 ms MV A Andrea: 0.82 m/s MV E/A Ratio: 1.16 RAP: 5.00 mmHg RVSP: 17.25 mmHg FINDINGS -------- Sinus rhythm. This was a technically difficult study with suboptimal views. The left ventricular size is normal. There is moderate concentric left ventricular hypertrophy. O verall left ventricular systolic function is low-normal with, an EF between 50 - 55 %. The right ventricle is normal in size. The left atrium was not well visualized. The left atrium is moderately dilated. The right atrium was not well visualized. 5.0mg of Lumason was utilized for enhancement of images Interatrial and interventricular septum intact. The aortic valve is trileaflet and appears structurally normal. There is no evidence of aortic regu rgitation. There is no evidence of aortic stenosis. The mitral valve was not well visualized. No mitral regurgitation. Mild tricuspid regurgitation present. There is no evidence of pulmonary hypertension. The right v entricular systolic pressure, as measured by Doppler, is 17.25mmHg. There is no pulmonic regurgitation present. The aortic root size is normal. IVC Not well visulized. There is a trivial pericardial effusion present. CONCLUSIONS -------- 1. Sinus rhythm. 2. This was a technically difficult study with suboptimal views. 3. The left ventricular size is normal. 4. There is moderate concentric left ventricular hypertrophy. 5. Overall left ventricular systolic function is low-normal with, an EF between 50 - 55 %. 6. The right ventricle is normal in size. 7. The left atrium was not well visualized. 8. The left atrium is moderately dilated. 9. The right atrium was not well visualized. 10. 5.0mg of Lumason was utilized for enhancement of images 11. Interatrial and interventricular septum intact. 12. The aortic valve is trileaflet and appears structurally normal. 13. There is no evidence of aortic regurgitation. 14. There is no evidence of aortic stenosis. 15. The mitral valve was not well visualized. 16. No mitral regurgitation. 17. Mild tricuspid regurgitation present. 18. There is no evidence of pulmonary hypertension. 19. The right ventricular systolic pressure, as measured by Doppler, is 17.25mmHg. 20. There is no pulmonic regurgitation present. 21. The aortic root size is normal. 22. IVC Not well visulized. 23. There is a trivial pericardial effusion present. AUDIO VISUAL DESIGN ENGINEER: Maryana Carmona RDCS
--- NOTE | 2018-12-10 14:07 | P.CNPUL ---
History of Present Illness Consult date: 12/10/18 Requesting physician: Robbie Rodriguez Reason for consult: dyspnea, cough Chief complaint: SVT History of present illness: This is a 68-year-old female patient who resides in extended care facility. She has a history of thyroid cancer status post thyroidectomy, hyperlipidemia, anxiety, metabolic encephalopathy, previous tobacco dependence. She was brought into the emergency room last night via EMS for tachycardia. The patient initially had been refusing transfer to the emergency room. This tachycardia have been going on for 2-3 days. She resides at [facility] on [facility]. Chest x- ray showed evidence of pulmonary interstitial edema. CT angiogram ruled out PE. There is some noted mild basilar pulmonary infiltrates and we are consulted for the same. She is seen today in consultation on the selective care unit. She is currently sitting up in a chair at the bedside. She has a loose nonproductive cough. She denies any shortness of breath. No chest pain or palpitations. Currently in sinus rhythm. Maintaining O2 saturations in the 90s on room air. Currently afebrile. Hemodynamically stable. White count 10.4. Hemoglobin 12.9. Sodium 136. Creatinine 0.89. AST 62. ALT 97. Alk phos 133. TSH 6.77. Review of Systems ROS unobtainable: due to mental status Past Medical History Past Medical History: Cancer, COPD, Hyperlipidemia, Pneumonia, Thyroid Disorder Additional Past Medical History / Comment(s): neck and back pain, thyroid cancer,bronchitis "ringing in my ears","poor circulation". Hypothyroidism, UTI, metabolic encephalopathy History of Any Multi-Drug Resistant Organisms: None Reported Past Surgical History: No Surgical Hx Reported Additional Past Surgical History / Comment(s): Thyroid surgery, x2 neck sx Past Anesthesia/Blood Transfusion Reactions: No Reported Reaction Additional Past Anesthesia/Blood Transfusion Reaction / Comment(s): claustrophobia Past Psychological History: Unable to Obtain Additional Psychological History / Comment(s): "psychotic disorder with delusio ns" per [facility] on the [place] records. Smoking Status: Never smoker Past Alcohol Use History: None Reported Additional Past Alcohol Use History / Comment(s): started smoking at age 18 smokes 1/2 ppd Past Drug Use History: None Reported - Past Family History Mother Family Medical History: Myocardial Infarction ([place]) Brother(s) Family Medical History: Myocardial Infarction ([place]) Father Family Medical History: Myocardial Infarction ([place]) Additional Family Medical History / Comment(s): x3 mi's Medications and Allergies Home Medications Medication Instructions Recorded Confirmed Type ALPRAZolam [Xanax] 0.5 mg PO TID@0600,1300,2100 12/09/18 12/09/18 History Acetaminophen Tab [Tylenol Tab] 650 mg PO Q4H PRN 12/09/18 12/09/18 History Atorvastatin [Lipitor] 10 mg PO HS@2100 12/09/18 12/09/18 History Levothyroxine Sodium [Synthroid] 75 mcg PO DAILY@0600 12/09/18 12/09/18 History Loratadine 10 mg PO HS@2100 12/09/18 12/09/18 History Melatonin 5 mg PO HS@2100 12/09/18 12/09/18 History risperiDONE [RisperDAL] 0.5 mg PO HS@2100 12/09/18 12/09/18 History Allergies Allergy/AdvReac Type Severity Reaction Status Date / Time No Known Allergies Allergy Verified 12/09/18 22:54 Physical Exam Vitals: Vital Signs Temp Pulse Pulse Resp BP BP Pulse Ox 12/10/18 08:00 98.1 F 78 18 114/65 97 12/10/18 04:00 99.0 F 100 22 91/60 94 L 12/10/18 01:26 94 18 152/68 97 12/10/18 00:00 99 20 162/90 97 12/09/18 23:18 97 18 110/76 97 12/09/18 22:52 98 F 95 20 115/74 97 12/09/18 22:45 98 F 176 H 24 94/81 95 Intake and Output 12/09/18 12/10/18 12/10/18 22:59 06:59 14:59 Intake Total 80 460 Output Total 375 Balance -295 460 Intake: Intake, IV Titration 80 Amount Sodium Chloride 0.9% 1, 80 000 ml @ 20 mls/hr IV . Q24H [facility] Rx#:[id number] Oral 460 Output: Urine 375 Other: Voiding Method Toilet Weight 95.209 kg 94.5 kg GENERAL EXAM: Alert, 68-year-old female patient, comfortable in no apparent distress. On room air. HEAD: Normocephalic. EYES: Normal reaction of pupils, equal size. NOSE: Clear with pink turbinates. THROAT: No erythema or exudates. NECK: No masses, no JVD. CHEST: No chest wall deformity. LUNGS: Equal air entry with faint crackles in the posterior bases. CVS: S1 and S2 normal with no audible murmur, regular rhythm. ABDOMEN: No hepatosplenomegaly, normal bowel sounds, no guarding or rigidity. SPINE: No scoliosis or deformity SKIN: No rashes CENTRAL NERVOUS SYSTEM: No focal deficits, tone is normal in all 4 extremities. EXTREMITIES: There is no peripheral edema. No clubbing, no cyanosis. Peripheral pulses are intact. Results - Laboratory Findings CBC and BMP: 12/09/18 22:52 12/09/18 22:52 PT/INR, D-dimer PT 10.0 sec (9.0-12.0) 12/09/18 22:52 INR 0.9 (<1.2) 12/09/18 22:52 D-Dimer 0.67 mg/L FEU (<0.60) H 12/09/18 22:52 Abnormal lab findings: Abnormal Labs 12/09/18 12/09/18 12/10/18 22:52 22:52 00:41 D-Dimer 0.67 H Sodium 136 L BUN 21 H Glucose 130 H AST 62 H ALT 97 H Alkaline Phosphatase 133 H TSH 6.770 H Urine Blood Small H Ur Leukocyte Esterase Small H Urine Mucus Rare H - Diagnostic Findings Chest x-ray: image reviewed CT scan - chest: image reviewed Assessment and Plan Assessment: Impression: #1 Palpitations secondary to supraventricular tachycardia. Currently in sinus rhythm. #2 Mild pulmonary venous congestion secondary to tachyarrhythmias. #3 Altered mental status with a history of multiple psychiatric issues. #4 Elevated liver enzymes of unclear etiology. #5 Hyperlipidemia. #6 Hypothyroidism. Plan: The patient was seen and evaluated by Dr. Robison. Computed tomography scan, chest x-ray and labs reviewed. No significant pulmonary complaints. We'll continue with her current medications. We will continue to follow make further recommendations based on her clinical status. I, the cosigning physician, performed a history & physical examination of the patient. Lungs sounds with faint crackles in the posterior bases. Maintaining good O2 saturations in the 90s on room air. I discussed the assessment and plan of care with my nurse practitioner, Yeimi Crawley. I attest to the above note as dictated by her. Time with Patient: Greater than 30
[2018-12-10] MEDS ORDERED: ATORVASTATIN 10 MG TAB PO SCH (21:00)
[2018-12-10] MEDS ORDERED: risperiDONE 0.5 MG TAB PO SCH (21:00)
[2018-12-11] MEDS: SODIUM CHLORIDE 0.9% 1,000 ML IV SCH (03:11)
[2018-12-11] MEDS: LEVOTHYROXINE 75 MCG TAB PO SCH (06:03)
[2018-12-11] MEDS: ALPRAZolam 0.5 MG TAB PO SCH ×2 (06:03→14:31)
[2018-12-11 06:36] LABS: Basophils # (A) 0.1 k/uL (0-0.2); Basophils % (A) 1 %; Eosinophils # (A) 0.3 k/uL (0-0.7); Eosinophils % (A) 6 %; HCT 40.3 % (34.0-46.0); HGB 13.3 gm/dL (11.4-16.0); Lymphocytes # (A) 1.6 k/uL (1.0-4.8); Lymphocytes % (A) 28 %; MCH 29.6 pg (25.0-35.0); MCHC 32.9 g/dL (31.0-37.0); Mean Platelet Volume 8.5; Monocytes # (A) 0.5 k/uL (0-1.0); Monocytes % (A) 9 %; Neutrophils # (A) 3.1 k/uL (1.3-7.7); Neutrophils % (A) 53 %; Platelet Count 240 k/uL (150-450); RBC 4.49 m/uL (3.80-5.40); WBC 5.9 k/uL (3.8-10.6)
[2018-12-11 06:45] LABS: ALT 73 U/L (9-52); AST 28 U/L (14-36); African American GFR (CKD) >90 (>60 ml/min/1.73 sqM); Albumin 3.7 g/dL (3.5-5.0); Alkaline Phosphatase 125 U/L (38-126); Anion Gap 10 mmol/L; Blood Urea Nitrogen 15 mg/dL (7-17); Calcium 9.4 mg/dL (8.4-10.2); Carbon Dioxide 22 mmol/L (22-30); Chloride 107 mmol/L (98-107); Glucose 92 mg/dL (74-99); Potassium 4.3 mmol/L (3.5-5.1); Sodium 139 mmol/L (137-145); Total Bilirubin 0.4 mg/dL (0.2-1.3); Total Protein 6.7 g/dL (6.3-8.2)
[2018-12-11] MEDS: METOPROLOL TARTRATE 25 MG TAB PO SCH (09:12)
[2018-12-11] MEDS: PANTOPRAZOLE 40 MG/10 ML VIAL IV SCH (09:12)
--- NOTE | 2018-12-11 12:34 | PN ---
PROGRESS NOTE This is a 68-year-old female who we saw yesterday in consultation. We actually evaluated her in the emergency room. She was admitted with a diagnosis of supraventricular tachycardia from one of the local nursing homes. She was also found to have mild pulmonary venous congestion with mild CHF, mental status changes, psychiatric issues, elevated liver enzymes, hyperlipidemia, and hypothyroidism. The patient apparently wanted to sign out against medical advice but decided to stay. Currently, she is resting comfortably. The patient is not on any supplemental oxygen. She denies any shortness of breath or chest pain. She denies any palpitations or tachycardia. No nausea, vomiting, diarrhea, or any genitourinary complaints. She wants to be discharged home. We told her it was up to Dr. Luevano and/or Dr. Cross in Cardiology to decide. PHYSICAL EXAMINATION: Current vital signs are reviewed. Her room air saturation is 94%. Blood pressure 138/89, respiratory rate 19, heart rate 85, and temperature is 97 degrees. Appears in no acute distress. No respiratory distress. She is sitting in the chair at the bedside. All she wants to do is leave. HEENT examination is grossly unremarkable. Mucous membranes are moist. No oral lesions. No supplemental oxygen. NECK: Supple. Full range of motion. No adenopathy or thyromegaly. Neck veins are flat. CARDIOVASCULAR examination reveals regular rhythm rate. Heart rate 85. No murmur. S1, S2 normal. LUNGS: Clear. Breath sounds are equal. No wheezes or rhonchi. ABDOMEN: Soft. Bowel sounds are heard. EXTREMITIES are intact. No edema. SKIN: Without rash. NEUROLOGIC examination is difficult to assess given her psychiatric history. She does move all 4 extremities well. Her speech is very coarse and guttural. It is hard to understand her. LAB DATA: Reviewed. White count 5.9, hemoglobin 13.3, hematocrit 40.3, platelet count 340,000. Sodium 139, potassium 4.3 chloride 107, CO2 is 22, anion gap is 10. BUN and creatinine were 15 and 0.73. The rest of her labs look okay. Her urine is potentially positive for mild urinary tract infection. In addition, her TSH is 6.770 suggesting that she is currently hypothyroid. Microbiologic studies are negative or pending. No recent x-rays to review. Her CT angiogram was negative for PE. There is some mild bibasilar atelectasis and mild mediastinal and axillary adenopathy. ASSESSMENT: 1. Acute onset of supraventricular tachycardia, now currently in sinus rhythm. 2. Mild pulmonary venous congestion and mild congestive heart failure, likely secondary to supraventricular tachycardia. 3. Mental status changes, likely related to psychiatric issues. 4. Elevated liver enzymes, which may relate to mild congestive hepatopathy or nonalcoholic steatohepatitis. 5. Hyperlipidemia. 6. Hypothyroidism. PLAN: Currently, the patient is doing reasonably well. From the pulmonary standpoint, she could be discharged. Certainly that is up to Cardiology and her hospital service. I am sure they are concerned about her irregular heart rhythm, although currently, she is in normal sinus rhythm. MMODL / IJN: [id number] /
--- NOTE | 2018-12-11 12:36 | P.PN ---
Subjective Progress Note Date: 12/11/18 Principal diagnosis: Cardiac arrhythmia This is a pleasant 68-year-old female patient with multiple psychiatric issues with is a resident at [facility] was brought to the emergency room because she was feeding her heart was racing. The patient somewhat is a poor historian. For the last few days, she has been experiencing intermittent episodes of heart racing and fluttering associated with dizziness. No syncope. The patient was refusing to come to the emergency room at the beginning of her symptoms. She was brought yesterday where she was found to be in narrow complex tachycardia consistent with SVT. The patient unable to tell if she was seen by a seed tester in the past and if she was diagnosed with SVT in the past. She stated that she never been diagnosed with any coronary artery disease or congestive heart failure or any cardiac arrhythmia and never seen by any seed tester in the past. In the emergency room she was given adenosine and she was converted to normal sinus mechanism and has been maintaining normal sinus mechanism. She is not on any AV cuco jackeline agents at home. This time she denies any symptoms of chest pain or chest discomfort, shortness of breath, dizziness, or syncope. I did review the rhythm strips in the chart which revealed narrow complex tachycardia consistent with SVT. D-dimer came in to be elevated but the computed tomography scan of the chest did not show any PE but it did show it seems to be cardiomegaly. On follow-up with the patient today, 12/11/2018, the patient stated that she denies any chest pain or chest discomfort or any more episode of heart racing and fluttering. Yesterday she was started on metoprolol and since then she did not have any more episodes of SVT. The patient is insisting about going home. From the cardiac standpoint overview, she can be discharged home. Objective - Vital Signs Vital signs: Vital Signs Temp 97.0 F L 12/11/18 08:00 Pulse 85 12/11/18 08:00 Resp 19 12/11/18 08:00 BP 138/89 12/11/18 08:00 Pulse Ox 94 L 12/11/18 08:00 Intake & Output 12/10/18 12/11/18 12/11/18 18:59 06:59 18:59 Intake Total 460 360 Balance 460 360 Weight 93.3 kg Intake: Oral 460 360 Other: Voiding Method Toilet # Voids 1 2 - Constitutional General appearance: Present: no acute distress - Respiratory Respiratory: bilateral: CTA - Cardiovascular Rhythm: regular Heart sounds: normal: S1, S2 - Labs CBC & Chem 7: 12/11/18 05:22 12/11/18 05:22 Labs: Abnormal Lab Results - Last 24 Hours (Table) 12/11/18 Range/Units 05:22 ALT 73 H (9-52) U/L Assessment and Plan Assessment: Assessment #1 SVT, the SVT was documented. The patient now is in normal sinus mechanism Plan #1 acute coronary event was ruled out #2 PE was ruled out #3 continue the current dose of metoprolol #4 the patient can be discharged home and will follow-up with the patient as an outpatient
[2018-12-11 13:10] VITALS: BP 137/84; PULSE 68; RESP 17; TEMP 97.3
--- NOTE | 2018-12-11 13:58 | P.DS ---
Providers Date of admission: 12/10/18 00:28 Expected date of discharge: 12/11/18 Attending physician: Robbie Rodriguez Consults: 12/10/18 00:28 Consult Physician Routine Consulting Provider: Fransico Cross Consult Reason/Comments: SVT Do you want consulting provider notified?: Yes 12/10/18 12:44 Consult Physician Routine Consulting Provider: Roscoe Robison Consult Reason/Comments: basilar pulmonary infiltrates and lympadenopathy Do you want consulting provider notified?: Yes [facility]: Diagnosis on discharge: #1 palpitation was feeling her heart racing, and evidence of supraventricular tachycardia on EKG on arrival to emergency room, at this time patient is normal sinus rhythm, cardiology consultation requested, for evaluation. #2 evidence of cardiomegaly on chest computed tomography scan, echocardiogram or #3 underlying history of hypothyroidism maintained on levothyroxine 75 g daily Will check TSH level #4 underlying history of hyperlipidemia maintained on Lipitor #5 underlying history of multiple psychiatric illnesses maintained on Xanax and Risperdal #6 elevated liver enzymes with AST at 62 and a LT at 97 , at this time will hold Lipitor and check liver ultrasound #7 computed tomography scan of the chest revealing evidence of by basilar pulmonary infiltrate and mild mediastinal and axillary adenopathy pulmonary consultation will be requested Hospital course: Lolis Kellogg is a 68-year-old female patient who resides at a half-way due to multiple psychiatry care and social issues, patient was complaining on and off of feeling her heart racing for the last 2 weeks, she has refused to come to emergency room on previous occasions, yesterday she was agreeable to come to emergency room, EMS were called and patient was brought in to [facility] emergency room, EKG revealed evidence of narrow complex tachycardia consistent with supraventricular tachycardia, patient returned spontaneously to normal sinus rhythm, her d-dimer was elevated CT angiogram of the chest was done and was negative for any evidence of pulmonary embolism however it revealed evidence of cardiomegaly, patient denies any previous history of coronary artery disease, congestive heart failure, or any kind of cardiac arrhythmia, she was admitted to telemetry floor cardiology consultation was requested, at this time patient denies any complaints there is no chest pain or shortness of breath, her only complaint earlier at the half-way was feeling her heart racing. Patient was evaluated by cardiology, recommendation were to start metoprolol 25 mg by mouth twice daily, and monitor patient for 24 hours, patient did not have any recurrence of her supraventricular tachycardia, she was stable and asymptomatic she was discharged home back to [facility] half-way on 12/11/2018 Patient was evaluated also by pulmonary Dr. Robison due to abnormal computed tomography scan of the chest showing mild infiltrate and atelectasis at the posterior bases and mild Hang asked her left axillary adenopathy, patient was cleared by pulmonary for discharge no intervention recommended at this time. Patient was eager to be discharged from the hospital she was discharged back to [facility] on the farrar on 12/11/2018 Metoprolol 25 mg twice daily should be added to her regimen Patient Condition at Discharge: Fair Plan - Discharge Summary Discharge Rx Participant: No New Discharge Prescriptions: New Metoprolol Tartrate [Lopressor] 25 mg PO BID tab Continue risperiDONE [RisperDAL] 0.5 mg PO HS@2100 Acetaminophen Tab [Tylenol] 650 mg PO Q4H PRN PRN Reason: Pain ALPRAZolam [Xanax] 0.5 mg PO TID@0600,1300,2100 Melatonin 5 mg PO HS@2100 Loratadine 10 mg PO HS@2100 Atorvastatin [Lipitor] 10 mg PO HS@2100 Levothyroxine Sodium [Synthroid] 75 mcg PO DAILY@0600 Discharge Medication List ALPRAZolam [Xanax] 0.5 mg PO TID@0600,1300,2100 12/09/18 [History] Acetaminophen Tab [Tylenol] 650 mg PO Q4H PRN 12/09/18 [History] Atorvastatin [Lipitor] 10 mg PO HS@2100 12/09/18 [History] Levothyroxine Sodium [Synthroid] 75 mcg PO DAILY@0600 12/09/18 [History] Loratadine 10 mg PO HS@2100 12/09/18 [History] Melatonin 5 mg PO HS@2100 12/09/18 [History] risperiDONE [RisperDAL] 0.5 mg PO HS@2100 12/09/18 [History] Metoprolol Tartrate [Lopressor] 25 mg PO BID tab 12/11/18 [Rx] Follow up Appointment(s)/Referral(s): None,Stated [REFERRING] - 1-2 days
[2018-12-12] MEDS ORDERED: PANTOPRAZOLE 40 MG TABLET PO SCH (07:30)
== END 2018-12-11 18:38 | disposition home or self-care (01) | DRG 310 ==
LOC: EC 22:30 → EEVIPCON 22:30 → 3SCARD 12-10 00:28
PROVIDERS: ADMIT Internal Medicine; ATTEND Internal Medicine
DX: I47.1 Supraventricular tachycardia (principal); E78.5 Hyperlipidemia, unspecified; E89.0 Postprocedural hypothyroidism; F40.240 Claustrophobia; J44.9 Chronic obstructive pulmonary disease, unspecified; Z79.890 Hormone replacement therapy; Z79.899 Other long term (current) drug therapy; Z82.49 Family history of ischemic heart disease and other diseases of the circulatory system; Z85.850 Personal history of malignant neoplasm of thyroid; Z87.891 Personal history of nicotine dependence; K75.81 Nonalcoholic steatohepatitis (NASH); F99 Mental disorder, not otherwise specified
CPT/HCPCS: 36415; 71046; 71275; 80053; 81001; 83735; 83880; 84443; 84484; 85025; 85379; 85610; 85730; 93005; 93306; 96361; 96374; 99291

== ENCOUNTER 2022-05-16 08:41 | Emergency (ER) | payer MEDICARE, OTHER ==
[2022-05-16 08:51] VITALS: TEMP 98.6
[2022-05-16] MEDS ORDERED: SODIUM CHLORIDE 0.9% 1,000 ML IV STA (08:55)
--- NOTE | 2022-05-16 09:24 | XR ---
EXAMINATION TYPE: XR chest 2V DATE OF EXAM: 05/16/2022 COMPARISON: 12/09/2018 HISTORY: 72-year-old female difficulty breathing TECHNIQUE: AP and lateral views FINDINGS: ACF hardware. Limited due to very large body habitus. Heart appears borderline enlarged. Unable to ex clude focal posterior basilar opacity on the lateral view. There appears to be some gastric lucency p rojecting above the diaphragm. Heart borderline in size. IMPRESSION: 1. Borderline heart size. Possible mild pulmonary vascular congestion. The appearance could be techni forrest. Limited by body habitus. Clinically correlate. 2. Some patchy posterior basilar atelectasis versus developing infiltrate. 3. Moderate-sized hiatal hernia.
--- NOTE | 2022-05-16 09:28 | ED ---
Recheck HPI - General Chief Complaint: Recheck/Abnormal Lab/Rx Stated Complaint: Dehydration Time Seen by Provider: 05/16/22 08:46 Source: patient, RN notes reviewed Mode of arrival: EMS Limitations: no limitations - History of Present Illness Initial Comments: This is a 72-year-old female who presents to the emergency department for concerns of dehydration and a cough. EMS was initially called to [facility] because the patient's IV stopped working and she could not continue receiving her IV fluids. EMS offered to restart the IV there, however she requested to come to the hospital because she also wanted to be evaluated for a cough. Patient is a somewhat poor historian and states that the cough has been present over the last several weeks. She did just finish a course of antibiotics yesterday, but is not sure what kind. EMS did put her on oxygen, however she did not feel short of breath and does not wear oxygen at home. Additionally, [facility] was concerned that she had low blood pressure last night. EMS measured her blood pressure to be in the 130s over 70s when they took it. Patient was sleeping when her blood pressure dropped. She denies any chest pain, nausea, vomiting, or abdominal pain. Denies any fevers, chills, sore throat, dyspnea, chest pain, palpitations, abdominal pain, nausea, vomiting, diarrhea, back pain, or headaches. - Related Data Home Medications Medication Instructions Recorded Confirmed ALPRAZolam [Xanax] 0.5 mg PO TID@0600,1300,209912/09/18 05/16/22 Acetaminophen Tab [Tylenol] 650 mg PO Q4H PRN 12/09/18 05/16/22 Atorvastatin [Lipitor] 10 mg PO HS@2100 12/09/18 05/16/22 Loratadine 10 mg PO HS@0900 12/09/18 05/16/22 Melatonin 5 mg PO HS@2100 12/09/18 05/16/22 risperiDONE [RisperDAL] 0.5 mg PO HS@2100 12/09/18 05/16/22 Bismuth Subsalicylate 524 mg PO Q4H PRN 05/16/22 05/16/22 [Pepto-Bismol] Budesonide [Pulmicort] 0.5 mg INHALATION RT-BID@0900,209905/16/22 05/16/22 Fluticasone Nasal Reasnor [Flonase 2 spray EA NOSTRIL HS@209905/16/22 05/16/22 Nasal Reasnor] Ipratropium-Albuterol Nebulize 3 ml INHALATION RT-Q4H PRN 05/16/22 05/16/22 [Duoneb 0.5 mg-3 mg/3 ml Soln] Levothyroxine Sodium [Synthroid] 88 mcg PO DAILY@0600 05/16/22 05/16/22 Metoprolol Tartrate [Lopressor] 25 mg PO BID@0900,2100 05/16/22 05/16/22 Potassium Chloride ER [K-Dur 10] 10 meq PO DAILY@0900 05/16/22 05/16/22 guaiFENesin SYRUP 100MG/5ML 200 mg PO Q4H PRN 05/16/22 05/16/22 [Robitussin] Allergies Allergy/AdvReac Type Severity Reaction Status Date / Time No Known Allergies Allergy Verified 05/16/22 12:10 Review of Systems ROS Statement: Those systems with pertinent positive or pertinent negative responses have been documented in the HPI. ROS Other: All systems not noted in ROS Statement are negative. Past Medical History Past Medical History: Cancer, COPD, Hyperlipidemia, Pneumonia, Thyroid Disorder Additional Past Medical History / Comment(s): neck and back pain, thyroid cancer,bronchitis "ringing in my ears","poor circulation". Hypothyroidism, UTI, metabolic encephalopathy History of Any Multi-Drug Resistant Organisms: None Reported Past Surgical History: No Surgical Hx Reported Additional Past Surgical History / Comment(s): Thyroid surgery, x2 neck sx Past Anesthesia/Blood Transfusion Reactions: No Reported Reaction Additional Past Anesthesia/Blood Transfusion Reaction / Comment(s): claustrophobia Past Psychological History: Unable to Obtain Smoking Status: Former smoker Past Alcohol Use History: None Reported Past Drug Use History: None Reported - Past Family History Mother Family Medical History: Myocardial Infarction ([place]) Brother(s) Family Medical History: Myocardial Infarction ([place]) Father Family Medical History: Myocardial Infarction ([place]) Additional Family Medical History / Comment(s): x3 mi's General Exam General appearance: alert, in no apparent distress Head exam: Present: atraumatic, normocephalic, normal inspection Respiratory exam: Present: wheezes, rhonchi, decreased breath sounds, prolonged expiratory Cardiovascular Exam: Present: regular rate, normal rhythm, normal heart sounds. Absent: systolic murmur, diastolic murmur, rubs, gallop, clicks Neurological exam: Present: alert, oriented X3, CN II-XII intact Psychiatric exam: Present: normal affect, normal mood Skin exam: Present: warm, dry, intact, normal color. Absent: rash Course Vital Signs 05/16/22 05/16/22 05/16/22 08:44 09:01 12:00 Temperature 98.6 F Pulse Rate 72 67 Respiratory 20 20 18 Rate Blood Pressure 123/83 O2 Sat by Pulse 97 96 Oximetry 05/16/22 12:50 Temperature 98.6 F Pulse Rate 80 Respiratory 18 Rate Blood Pressure 109/67 O2 Sat by Pulse 96 Oximetry Medical Decision Making - Medical Decision Making This is a 72-year-old female who presents to the emergency department for a cough and dehydration. Was pt. sent in by a medical professional or institution? @ -No Did you speak to anyone other than the patient for history? @ -No Did you review nursing and triage notes? @ -Yes, and I agree, it is accurate with regards to the patient's symptoms. Were old charts reviewed? @ -No Differential Diagnosis? @ -Differential Cough: Influenza, Covid, RSV, croup, allergic rhinitis, GERD, pneumonia, bronchitis, COPD, viral pharyngitis, streptococcal pharyngitis, this is not meant to be an all-inclusive list. EKG interpreted by me (3pts min.)? @ -Sinus bradycardia. Ventricular rate 59 beats per minute, QRS duration 88 ms, QTC 411 ms. X-rays interpreted by me (1pt min.)? @ -Chest x-ray obtained. My interpretation identifies possible posterior atelectasis and cardiomegaly. What testing was considered but not performed? (CT, X-rays, U/S, labs)? Why? @ -None What meds were considered but not given? Why? @ -None Did you discuss the management of the patient with other professionals? @ -No Did you reconcile home meds? @ -No Was smoking cessation discussed for >3mins.? @ -No Was critical care preformed (if so, how long)? @ -No Were there social determinants of health that impacted care today? How? (Home lessness, low income, unemployed, alcoholism, drug addiction, transportation, low edu. Level, literacy, decrease access to med. care, nursing home, rehab)? @ -No Was there de-escalation of care discussed even if they declined? (Discuss DNR or withdrawal of care, Hospice)? @ -No What co-morbidities impacted this encounter? (DM, HTN, Smoking, COPD, CAD, Cancer, CVA, Hep., AIDS, mental health diagnosis, sleep apnea, morbid obesity)? @ -COPD, HLD, thyroid disorder Was patient admitted / discharged? @ -Discharged. Lab work obtained and found to be nonactionable. Chest x-ray reveals concerns for atelectasis versus developing infiltrate. Patient just finished a course of antibiotics. I did review her fdc paperwork, however we could not figure out which antibiotic this was. Her IV was replaced and a liter bolus of normal saline was administered for the patient's reported dehydration. There were no concerns with her blood pressure while she was here, as was noted at the fdc. Additionally, we removed the oxygen and she continued to sat around 98%. She did have some wheezing on physical exam, however she states that this is common for her with regards to COPD. She declined the need for a breathing treatment. BNP is negative for any signs of CHF. Covid, influenza, and RSV negative as well. Patient requests discharge home. She was picked up by the wheelchair van and taken back to [facility]. Undiagnosed new problem with uncertain prognosis? @ -None Drug Therapy requiring intensive monitoring for toxicity (Heparin, Nitro, Insulin, Cardizem)? @ -None Were any procedures done? @ -None Diagnosis/symptom? @ -Bronchitis Acute, or Chronic, or Acute on Chronic? @ -Acute Uncomplicated (without systemic symptoms) or Complicated (systemic symptoms)? @ -Uncomplicated Side effects of treatment? @ -None Exacerbation, Progression, or Severe Exacerbation] @ -Not applicable Poses a threat to life or bodily function? @ -No Diagnosis/symptom? @ -Dehydration Acute, or Chronic, or Acute on Chronic? @ -Acute Uncomplicated (without systemic symptoms) or Complicated (systemic symptoms)? @ -Uncomplicated Side effects of treatment? @ -None Exacerbation, Progression, or Severe Exacerbation] @ -Not applicable Poses a threat to life or bodily function? @ -No Return precautions reviewed in depth, the patient is instructed to return to the emergency department with any new, worsening, or concerning symptoms. Patient verbalized understanding. This case was discussed in detail with the attending ED physician, Dr. Desai. Presentation, findings, and treatment plan discussed in detail as well. - Lab Data Result diagrams: 05/16/22 09:44 05/16/22 09:44 Lab Results 05/16/22 05/16/22 05/16/22 Range/Units 09:44 09:44 09:44 WBC 3.9 (3.8-10.6) k/uL RBC 4.08 (3.80-5.40) m/uL Hgb 12.2 (11.4-16.0) gm/dL Hct 37.6 (34.0-46.0) % MCV 92.0 (80.0-100.0) fL MCH 29.8 (25.0-35.0) pg MCHC 32.4 (31.0-37.0) g/dL RDW 13.4 (11.5-15.5) % Plt Count 225 (150-450) k/uL MPV 9.4 Neutrophils % 61 % Lymphocytes % 26 % Monocytes % 9 % Eosinophils % 2 % Basophils % 0 % Neutrophils # 2.4 (1.3-7.7) k/uL Lymphocytes # 1.0 (1.0-4.8) k/uL Monocytes # 0.3 (0-1.0) k/uL Eosinophils # 0.1 (0-0.7) k/uL Basophils # 0.0 (0-0.2) k/uL PT 10.2 (9.0-12.0) sec INR 1.0 (<1.2) APTT 24.0 (22.0-30.0) sec Sodium 138 (137-145) mmol/L Potassium 4.6 (3.5-5.1) mmol/L Chloride 104 (98-107) mmol/L Carbon Dioxide 27 (22-30) mmol/L Anion Gap 7 mmol/L BUN 17 (7-17) mg/dL Creatinine 0.58 (0.52-1.04) mg/dL Est GFR (CKD-EPI)AfAm >90 (>60 ml/min/1.73 sqM) Est GFR (CKD-EPI)NonAf >90 (>60 ml/min/1.73 sqM) Glucose 100 H (74-99) mg/dL Plasma Lactic Acid Graham (0.7-2.0) mmol/L Calcium 8.6 (8.4-10.2) mg/dL Total Bilirubin 0.4 (0.2-1.3) mg/dL AST 28 (14-36) U/L ALT 25 (4-34) U/L Alkaline Phosphatase 125 (38-126) U/L Troponin I (0.000-0.034) ng/mL NT-Pro-B Natriuret Pep pg/mL Total Protein 6.8 (6.3-8.2) g/dL Albumin 3.7 (3.5-5.0) g/dL Influenza Type A (PCR) (Not Detectd) Influenza Type B (PCR) (Not Detectd) RSV (PCR) (Not Detectd) SARS-CoV-2 (PCR) (Not Detectd) 05/16/22 05/16/22 05/16/22 Range/Units 09:44 09:44 09:44 WBC (3.8-10.6) k/uL RBC (3.80-5.40) m/uL Hgb (11.4-16.0) gm/dL Hct (34.0-46.0) % MCV (80.0-100.0) fL MCH (25.0-35.0) pg MCHC (31.0-37.0) g/dL RDW (11.5-15.5) % Plt Count (150-450) k/uL MPV Neutrophils % % Lymphocytes % % Monocytes % % Eosinophils % % Basophils % % Neutrophils # (1.3-7.7) k/uL Lymphocytes # (1.0-4.8) k/uL Monocytes # (0-1.0) k/uL Eosinophils # (0-0.7) k/uL Basophils # (0-0.2) k/uL PT (9.0-12.0) sec INR (<1.2) APTT (22.0-30.0) sec Sodium (137-145) mmol/L Potassium (3.5-5.1) mmol/L Chloride (98-107) mmol/L Carbon Dioxide (22-30) mmol/L Anion Gap mmol/L BUN (7-17) mg/dL Creatinine (0.52-1.04) mg/dL Est GFR (CKD-EPI)AfAm (>60 ml/min/1.73 sqM) Est GFR (CKD-EPI)NonAf (>60 ml/min/1.73 sqM) Glucose (74-99) mg/dL Plasma Lactic Acid Graham 1.1 (0.7-2.0) mmol/L Calcium (8.4-10.2) mg/dL Total Bilirubin (0.2-1.3) mg/dL AST (14-36) U/L ALT (4-34) U/L Alkaline Phosphatase (38-126) U/L Troponin I <0.012 (0.000-0.034) ng/mL NT-Pro-B Natriuret Pep 214 pg/mL Total Protein (6.3-8.2) g/dL Albumin (3.5-5.0) g/dL Influenza Type A (PCR) (Not Detectd) Influenza Type B (PCR) (Not Detectd) RSV (PCR) (Not Detectd) SARS-CoV-2 (PCR) (Not Detectd) 05/16/22 Range/Units 09:44 WBC (3.8-10.6) k/uL RBC (3.80-5.40) m/uL Hgb (11.4-16.0) gm/dL Hct (34.0-46.0) % MCV (80.0-100.0) fL MCH (25.0-35.0) pg MCHC (31.0-37.0) g/dL RDW (11.5-15.5) % Plt Count (150-450) k/uL MPV Neutrophils % % Lymphocytes % % Monocytes % % Eosinophils % % Basophils % % Neutrophils # (1.3-7.7) k/uL Lymphocytes # (1.0-4.8) k/uL Monocytes # (0-1.0) k/uL Eosinophils # (0-0.7) k/uL Basophils # (0-0.2) k/uL PT (9.0-12.0) sec INR (<1.2) APTT (22.0-30.0) sec Sodium (137-145) mmol/L Potassium (3.5-5.1) mmol/L Chloride (98-107) mmol/L Carbon Dioxide (22-30) mmol/L Anion Gap mmol/L BUN (7-17) mg/dL Creatinine (0.52-1.04) mg/dL Est GFR (CKD-EPI)AfAm (>60 ml/min/1.73 sqM) Est GFR (CKD-EPI)NonAf (>60 ml/min/1.73 sqM) Glucose (74-99) mg/dL Plasma Lactic Acid Graham (0.7-2.0) mmol/L Calcium (8.4-10.2) mg/dL Total Bilirubin (0.2-1.3) mg/dL AST (14-36) U/L ALT (4-34) U/L Alkaline Phosphatase (38-126) U/L Troponin I (0.000-0.034) ng/mL NT-Pro-B Natriuret Pep pg/mL Total Protein (6.3-8.2) g/dL Albumin (3.5-5.0) g/dL Influenza Type A (PCR) Not Detected (Not Detectd) Influenza Type B (PCR) Not Detected (Not Detectd) RSV (PCR) Not Detected (Not Detectd) SARS-CoV-2 (PCR) Not Detected (Not Detectd) - Radiology Data Radiology results: report reviewed, image reviewed Disposition Clinical Impression: Bronchitis, Dehydration Disposition: HOME SELF-CARE Instructions (If sedation given, give patient instructions): Acute Bronchitis (ED) Additional Instructions: Return to the emergency department with any new, worsening, or concerning symptoms. You can use [id number] cough medications such as Mucinex as needed. Follow up with your primary care provider in 1-2 days. Is patient prescribed a controlled substance at d/c from ED?: No Referrals: Robbie Rodriguez MD [Primary Care Provider] - 1-2 days
[2022-05-16 09:59] LABS: Basophils % (A) 0 %; Eosinophils # (A) 0.1 k/uL (0-0.7); Eosinophils % (A) 2 %; HCT 37.6 % (34.0-46.0); HGB 12.2 gm/dL (11.4-16.0); Lymphocytes % (A) 26 %; MCH 29.8 pg (25.0-35.0); MCHC 32.4 g/dL (31.0-37.0); Mean Platelet Volume 9.4; Monocytes # (A) 0.3 k/uL (0-1.0); Monocytes % (A) 9 %; Neutrophils # (A) 2.4 k/uL (1.3-7.7); Neutrophils % (A) 61 %; Platelet Count 225 k/uL (150-450); RBC 4.08 m/uL (3.80-5.40); RDW 13.4 % (11.5-15.5); WBC 3.9 k/uL (3.8-10.6)
[2022-05-16 10:10] LABS: ALT 25 U/L (4-34); African American GFR (CKD) >90 (>60 ml/min/1.73 sqM); Albumin 3.7 g/dL (3.5-5.0); Anion Gap 7 mmol/L; Blood Urea Nitrogen 17 mg/dL (7-17); Calcium 8.6 mg/dL (8.4-10.2); Carbon Dioxide 27 mmol/L (22-30); Chloride 104 mmol/L (98-107); Glucose 100 mg/dL (74-99); Non-African American GFR(CKD) >90 (>60 ml/min/1.73 sqM); Sodium 138 mmol/L (137-145); Total Bilirubin 0.4 mg/dL (0.2-1.3); Total Protein 6.8 g/dL (6.3-8.2)
[2022-05-16 10:11] LABS: Prothrombin Time 10.2 sec (9.0-12.0)
[2022-05-16 10:34] LABS: Potassium 4.6 mmol/L (3.5-5.1)
[2022-05-16 10:35] LABS: AST 28 U/L (14-36); Alkaline Phosphatase 125 U/L (38-126)
[2022-05-16] MEDS ORDERED: methylPREDNISolone SOD SUCCI 125 MG/2 ML VIAL IV STA (12:06)
[2022-05-16 12:08] VITALS: RESP 18
[2022-05-16 12:54] VITALS: BP 109/67; PULSE 80
== END 2022-05-16 13:12 | disposition home or self-care (01) ==
LOC: EC 08:41
DX: J40 Bronchitis, not specified as acute or chronic (principal); E86.0 Dehydration; J44.9 Chronic obstructive pulmonary disease, unspecified; E03.9 Hypothyroidism, unspecified; E78.5 Hyperlipidemia, unspecified; Z87.891 Personal history of nicotine dependence; Z79.51 Long term (current) use of inhaled steroids; Z79.890 Hormone replacement therapy; Z79.899 Other long term (current) drug therapy; Z20.822 Contact with and (suspected) exposure to COVID-19
CPT/HCPCS: 36415; 93005; 83880; 80053; 83605; 84484; 85025; 85610; 85730; 87636; 71046; 99284; 96374; 96361 ×2; J2930